=== PATIENT | female | born 1980 | race Caucasian/White ===

== ENCOUNTER 2024-01-16 09:40 | Outpatient (AMB) | payer OTHER, SELFPAY ==
--- NOTE | 2024-01-16 09:45 | A.OFFPC_ITS ---
<Statement entered by Kaylee Carter RN - 01/16/24 11:15> When I entered the exam room to give the patient her TDaP shot the patient informed me she had called and spoke with her mother who informed the patient that she had had her tetanus shot in 2016. Patient decided against getting the shot today since she has had it within ten years. Vital Signs 01/16/24 09:56 Height 5 ft 4 in Weight 170 lb 4 oz BMI 29.2 BP 102/66 Blood Pressure Location Rt brachial Position Sitting Respiration 13 Pulse 80 Pulse Source Pulse Oximeter Pulse Oximetry (%) 98 Oxygen Delivery Method Room Air Intake Visit Reasons: pediatric genetic counselor referral for roberto Intake Note: new patient to establish care and also need referral for mammo. Allergies morphine [MORPHINE] Allergy (Intermediate, Verified 01/16/24 10:14) NAUSEA Penicillins [PENICILLINS] Allergy (Intermediate, Verified 01/16/24 10:14) HIVES Medication List - Last Reconciled 01/16/24 by BREE Rondon- No Known Home Meds Tobacco use date assessed: 01/16/24 Dental Screening Dental Screen Date: 01/16/24 Did you have a dental visit in the last 12 months?: No Did you have a dental problem in the last 6 months where you did not have access to dental care?: No Was dental information given to patient?: Patient has dentist HPI HPI Comments History of Present Illness Details 43 y/o F with TOMMIE, tobacco dependence cu rrent smoke, benzo dependence and etoh dependence in remission Hospitalized: [place] 1 year for benzo/etoh dependence Social works with insurance Surgical hx: [id number] 2016 Dr Rodriguez @ [place] Family hx: Maternal aunt breast ca unsure of details - ; 2 sisters w/ no cancer history (1 sister is half); Mom no cancer history Health Maintenance: Mammo has never had one; Maternal Aunt of breast ca 2 years ago Pap September 2022 WNL Tdap 01/16/24, Declined Flu Specialists: Podiatry [facility], no records available and for CPE. Relocated from [place] last October Had Xray R foot - bone spur on heel Xray; was wearing a boot; has pain that is so bad at times she cannot walk. Would like referral to podiatry. Has reproductive issues; was on clomid; unable to have a baby; told eggs cannot mature enough to be fertilized. Was having heavy crampy periods in the past; Last pap done September 2022 told this was WNL, No current desire to concieve. interested in referral to [facility] Was addicted to benzo (xanax) and had etoh dep/abuse, hospitalized in [place] for 1 year. Had electrode therapy. TOMMIE well controlled w/o meds. Used Vistaril PRN in the past with + effect. Not currently in counseling. Open to referral Eyes - wears glasses, needs referral, unsure of last eye exam Plan Screening labs today: Labs from today show a elevated MCV and MCH otherwise normal CBC, Elevated iron 214, normal TIBC, elevated% iron saturation, normal unsaturated iron binding, normal electrolytes, normal b12 & folate, normal renal function, hemoglobin A1c 4.9%, normal LFTs, normal lipid profile, normal TSH Will need to recheck labs and add on some addl labs to eveal abnormal CBC and Iron profile. RTO in 4 months for this, office to call and schedule. Mammo ordered Podiatry referral for R heel spur Referral to [facility] for routine [facility] Tdap today Declined flu Refer to [facility] for counseling Smoking cessation edu SBE edu RTO 1 year CPE sooner PRN This note is constructed using voice recognition software. While every effort has been made to ensure accuracy in milk condenser, still errors may have been included Sometimes, these errors may affect the content or meaning of the given sentence . An additional 20 was spent addressing the problem(s) noted at todays visit. This includes time spent before the visit reviewing the chart, time spent during the visit, and time spent after the visit on documentation [facility] Medical History (Updated 01/16/24 @ 15:23 by Lakesha Jack, [facility]) Anxiety Surgical History (Updated 01/16/24 @ 09:54 by Greg Amaral MA) Previous back surgery Family History (Updated 01/16/24 @ 09:53 by Greg Amaral MA) Father Diabetes Social History (Updated 01/16/24 @ 09:56 by Greg Amaral MA) Household Members: None Housing: Apartment Are you a primary residential caregiver to a significant other at home: No Do you presently have visiting nurse or other home services: No Alcohol intake: current Alcohol intake frequency: a few times a month Patient Tobacco Use Status: Former Tobacco user Tobacco use type: Cigarette Cigarettes Per Day: 4 Years Smoked: 15 e-Cigarette/Vaping Use: Never Used service: No Current occupational status: employed 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 1. Little interest or pleasure in doing things: not at all 2. Feeling down, depressed, or hopeless: not at all 3. Trouble falling or staying asleep, or sleeping too much: not at all 4. Feeling tired or having little energy: not at all 5. Poor appetite or overeating: not at all 6. Feeling bad about yourself - or that you are a failure or have let yourself or your family down: not at all 7. Trouble concentrating on things, such as reading the newspaper or watching television: not at all 8. Moving or speaking so slowly that other people could have noticed. Or the opposite - being so fidgety or restless that you have been moving around a lot more than usual: not at all 9. Thoughts that you would be better off or of hurting yourself in some way: not at all Total score: 0 Depression Screening Interpretation: Negative Depression Screening Done: Yes 40190 - PHQ-9 Billing: Yes Source: Developed by Drs. Cy Walter, Eleni Estrada, Ronnie Francis and colleagues, with an educational tracy from [employer]. Thrive Questionnaire Date Thrive assessed: 01/16/24 I am a: Patient What is your living situation today?: I have a steady place to live Within the past 12 months, did the food you bought not last and you didn't have the money to get more?: Never true Within the past 12 months, did you worry whether your food would run out before you got money to buy more?: Never true Do you have trouble paying for medicines?: No Do you have trouble getting transportation to medical appointments?: No Do you have trouble paying your heating and electricity bill?: No Do you have trouble taking care of your child, family member or friend?: No Do you have trouble with day-to-day activities such as bathing, preparing meals, shopping, managing finances, etc.?: No Are you currently unemployed and looking for a job?: No Are you interested in more education?: No Please select the resources that you would like help with: None Currently or been in a relationship where the following occur: No concerns reported THRIVE Score: 0 AUDIT C Alcohol Use Questionnaire (AUDIT-C) 1. How often do you have a drink containing alcohol?: 2-4 times a month 2. How many drinks containing alcohol do you have on a typical day when you are drinking?: 1 or 2 3. How often do you have six or more drinks on one occasion?: Never Total Score: 2 Score Reviewed/Action Taken: Yes TOMMIE-7 AMB Questionnaire TOMMIE-7 Date TOMMIE - 7 assessed: 01/16/24 Feeling nervous, anxious, or on edge: 0 = Not at all Not being able to stop or control worryin = Not at all Worrying too much about different things: 0 = Not at all Trouble relaxin = Not at all Being so restless that it is hard to sit still: 0 = Not at all Becoming easily annoyed or irritable: 0 = Not at all Feeling afraid as if something awful might happen: 0 = Not at all Total TOMMIE-7 score (0-4 normal; 5-9 mild; 10-14 moderate; 15-21 severe): 0 Source: Developed by Drs. Cy Walter, Eleni Estrada, Ronnie Francis and colleagues, with an educational tracy from [employer]. TOMMIE-7 Assessment Billing TOMMIE-7 Assessment Tool: TOMMIE-7 Assessment 77843 Review of Systems Const Details: Constitutional: Denies fever. Skin: Denies rash. Eye: Denies eye pain. ENMT: Denies sore throat and nasal congestion. Respiratory: Denies shortness of breath and cough. Gastrointestinal: Denies nausea, vomiting or abdominal pain. Cardiovascular: Denies chest pain and syncope. Genitourinary: Denies dysuria. Musculoskeletal: Denies back pain and extremity pain. Neurologic: Denies headaches, confusion, and weakness. Psychiatric: Denies suicidal thoughts and substance abuse. Allergy/ Immunologic: Denies impaired immunity. Physical exam (Primary Care) Vital Signs: Last Vital Signs Pulse 80 01/16/24 09:56 Resp 13 01/16/24 09:56 BP 102/66 01/16/24 09:56 Pulse Ox 98 01/16/24 09:56 Oxygen Delivery Method Room Air 01/16/24 09:56 BMI result Body Mass Index 29.2 BMI Assessment/Plan discussion: High BMI High, discussed plan: lifestyle and alcohol moderation Tobacco/Smoking Status: Tobacco use Status Tobacco use date assessed 01/16/24 01/16/24 09:56 Patient Tobacco Use Status Former Tobacco user 01/16/24 09:56 Tobacco use type Cigarette 01/16/24 09:56 e-Cigarette/Vaping Use Never Used 01/16/24 09:56 Are you ready to quit: Yes Tobacco cessation counseling provided: Yes Items discussed: Nicotine replacement, QuitWorks and Other Relapse Prevention: discussed the importance of a supportive environment, discussed extending NRT, discussed negative mood or depression after quitting, weight gain after smoking is common and discussed dietary, exercise and/or lifestyle changes Number of minutes spent counselin CPT code: 57698 - 4-10 Minutes PHQ-9: PHQ-9 Score PHQ-9: Total score 0 01/16/24 10:26 Depression Screening Interpretation: Negative Thrive Assessment: Date of Thrive Assessment Date Thrive assessed 01/16/24 01/16/24 09:56 Currently or been in a relationship where the following occur: No concerns reported Const Other: General: Well developed, well nourished, in no acute distress. Appears stated age. Head: Normocephalic, atraumatic. Eyes: Pupils are equal, round and reactive to light and accommodation. Conjunctivae are clear. Vision grossly normal. Ears: TMs clear AU, EACS WNL Nose: Patent, without discharge. Mouth: There are no ulcers or lesions noted. No inflammation, no post nasal drip, no plaques nor exudates. Neck: Supple, no adenopathy or thyromegaly. Lungs: Clear to auscultation bilaterally. No rales, rhonchi or wheeze noted. Good air flow in all crabtree. Heart: Regular rate and rhythm. No murmurs, click, rubs or gallops are noted. Abdomen: Bowel sounds present in all quadrants. The abdomen is soft, nontender, with no masses or organomegaly noted. No hernias are noted. Musculoskeletal: Joints are nontender, without swelling, redness, or effusions. Range of motion is observed to be normal. Pulses: Peripheral pulses are equal and palpable bilaterally. Extremities: No clubbing, cyanosis nor edema is noted. Neurologic: Gait and station normal. Cranial Nerves 2-12 intact. Motor strength grossly symmetrical and intact. No sensory loss. Balance normal. Skin: No rashes, ulcers, or lesions noted. Turgor is good. Skin color is good. Hair and nails are without abnormalities. Psych: Normal eye contact, affect and mood appropriate, and normal interactions. Patient is alert and appropriate to context. Coding Level of Care Code New Pt Level 2 (39745) New Pt Prev Care 40-64y(14303) Diagnoses Encounter for general adult medical examination without abnormal findings Z00.00 Calcaneal spur of right foot M77.31 Laterality: right Cervical cancer screening Z12.4 TOMMIE (generalized anxiety disorder) F41.1 Blurred vision, bilateral H53.8 Laboratory exam ordered as part of routine general medical examination Z00.00 Tobacco dependence F17.200 Benzodiazepine dependence in remission F13.21 Alcohol dependence in remission F10.21 Substance use status: in remission BMI 29.0-29.9,adult Z68.29 High total iron binding capacity R79.89 Macrocytosis without anemia D75.89 Additional Codes TOMMIE-7 Assessment Billing - TOMMIE-7 Assessment Tool: TOMMIE-7 Assessment 96344 ([id number]) Vital Signs *Quality* - CPT code: 51161 - 4-10 Minutes ([id number]) Assessment & Plan Assessment & Plan (1) Encounter for general adult medical examination without abnormal findings: Code(s): Z00.00 - Encounter for general adult medical examination without abnormal findings Plan: . (2) Heel spur: Comment: right foot Code(s): M77.30 - Calcaneal spur, unspecified foot Category: Medical Qualifiers: Laterality: right Qualified Code(s): M77.31 - Calcaneal spur, right foot Plan: . (3) Cervical cancer screening: Code(s): Z12.4 - Encounter for screening for malignant neoplasm of cervix Category: Medical Plan: . (4) TOMMIE (generalized anxiety disorder): Code(s): F41.1 - Generalized anxiety disorder Category: Medical Plan: . (5) Blurred vision, bilateral: Code(s): H53.8 - Other visual disturbances Category: Medical Plan: . (6) Laboratory exam ordered as part of routine general medical examination: Code(s): Z00.00 - Encounter for general adult medical examination without abnormal findings Category: Medical Plan: . (7) Tobacco dependence: Code(s): F17.200 - Nicotine dependence, unspecified, uncomplicated Category: Medical Plan: . (8) Benzodiazepine dependence in remission: Code(s): F13.21 - Sedative, hypnotic or anxiolytic dependence, in remission Category: Medical Plan: . (9) EtOH dependence: Code(s): F10.20 - Alcohol dependence, uncomplicated Category: Medical Qualifiers: Substance use status: in remission Qualified Code(s): F10.21 - Alcohol dependence, in remission Plan: . (10) BMI 29.0-29.9,adult: Code(s): Z68.29 - Body mass index [BMI] 29.0-29.9, adult Category: Medical (11) High total iron binding capacity: Code(s): R79.89 - Other specified abnormal findings of blood chemistry Category: Medical (12) Macrocytosis without anemia: Code(s): D75.89 - Other specified diseases of blood and blood-forming organs Category: Medical Plan . Orders: Orders Comprehensive Met. Panel Today Z00.00 - Encounter for general adult medical examination without abnormal findings TSH reflex Free T4 Today Z00.00 - Encounter for general adult medical examination without abnormal findings Complete Blood Count Man Dif 04/27/24 D75.89 - Other specified diseases of blood and blood-forming organs, R79.89 - Other specified abnormal findings of blood chemistry IRON PROFILE 04/27/24 D75.89 - Other specified diseases of blood and blood- forming organs, R79.89 - Other specified abnormal findings of blood chemistry Hepatitis A,B,C Profile 04/27/24 D75.89 - Other specified diseases of blood and blood-forming organs, R79.89 - Other specified abnormal findings of blood chemistry DNA Analysis Hemochromatosis 04/27/24 D75.89 - Other specified diseases of blood and blood-forming organs, R79.89 - Other specified abnormal findings of blood chemistry MM tomosynthesis screening BI Today Z12.31 - Encounter for screening mammogram for malignant neoplasm of breast Complete Blood Count no Diff Today Z00.00 - Encounter for general adult medical examination without abnormal findings Hemoglobin A1c Today Z00.00 - Encounter for general adult medical examination without abnormal findings IRON PROFILE Today Z00.00 - Encounter for general adult medical examination without abnormal findings Lipid Panel Today Z00.00 - Encounter for general adult medical examination without abnormal findings Microalbumin, Random (w Creat) Today Z00.00 - Encounter for general adult medical examination without abnormal findings Vitamin B12 and Folate Today Z00.00 - Encounter for general adult medical examination without abnormal findings Ferritin 04/27/24 D75.89 - Other specified diseases of blood and blood-forming organs, R79.89 - Other specified abnormal findings of blood chemistry Referrals Podiatry Referral M77.30 - Calcaneal spur, unspecified foot REAL ESTATE LEASING MANAGER Referral Z12.4 - Encounter for screening for malignant neoplasm of cervix Nurse Navigator Referral F41.1 - Generalized anxiety disorder Ophthalmology Referral H53.8 - Other visual disturbances Patient Instructions: Smoking Cessation How to Quit There are a lot of ways to quit smoking and many resources to help you. Family members, friends, and co-workers may be supportive or encouraging, but to be successful the desire and commitment to quit must be your own. Most people who have been able to successfully quit smoking made at least one unsuccessful attempt in the past. Try not to view past attempts to quit as failures, but rather as learning experiences. Stopping smoking or using smokeless tobacco is difficult, but anyone can do it. Know the symptoms to expect when you stop. Common symptoms include: ? An intense craving for nicotine ? Anxiety, tension, restlessness, frustration, or impatience ? Difficulty concentrating ? Drowsiness or trouble sleeping, as well as bad dreams and nightmares ? Drowsiness and trouble sleeping ? Headaches ? Increased appetite and weight gain ? Irritability or depression How severe your symptoms are depends on how long you smoked and how many cigarettes you smoked each day. Feel ready to quit? ? First and foremost, set a quit date and quit completely on that day. Before your quit date, you may begin reducing your cigarette use. But remember, there is no safe level of cigarette smoking. ? List the reasons why you want to quit. Include both short- and long-term benefits. ? Identify the times you are most likely to smoke. For example, do you tend to smoke when feeling stressed or down? When out at night with friends? While drinking coffee or alcohol? When bored? While driving? Right after a meal or sex? During a work break? While watching TV or playing cards? When you are with other smokers? ? Let all of your friends, family, and co-workers know of your plan to stop smoking and your quit date. Just being aware that they know what you're going through can be helpful, especially when you are grumpy. ? Get rid of all your cigarettes just before the quit date, and clean out anything that smells like smoke, such as clothes and furniture. Make a plan about what you will do instead of smoking at those times when you are most likely to smoke. ? Be as specific as possible. For example, drink tea instead of coffee -- tea may not trigger the desire for a cigarette. Or, take a walk when you feel stressed. ? Remove ashtrays and cigarettes from the car. Place pretzels or hard candies there instead. Pretend-smoke with a straw. ? Find activities that focus your hands and mind but are not taxing or fattening. Computer games, solitaire, knitting, sewing, and crossword puzzles may help. ? If you normally smoke after eating, find other ways to end a meal. Play a tape or CD, eat a piece of fruit, get up and make a phone call, or take a walk (a good distraction that also angel calories). Make other changes in your lifestyle. ? Change your daily schedule and habits. Eat at different times or eat several small meals instead of three large ones. Sit in a different chair or even a different room. ? Satisfy your oral habits by eating celery or other low-calorie snack, chewing sugarless gum, or sucking on a cinnamon stick. ? Go to public places and restaurants where smoking is prohibited or restricted. ? Eat regular meals and don't eat too much candy or sweet things. ? Get more exercise. Take walks or ride a bike. Exercise helps relieve the urge to smoke. Set short-term quitting goals and reward yourself when you meet them. ? Every day, put the money you normally spend on cigarettes in a jar. Then buy something pleasurable after a period of time. ? Try not to think about all the days ahead you will need to avoid smoking. Take it one day at a time. ? Even one puff or one cigarette will make your desire for more cigarettes even stronger. However, it is normal to make mistakes. So even if you have one cigarette, you don't need to take the next one. Other tips to help you quit smoking and stick to it: ? Enroll in a smoking cessation program (hospitals, health departments, community centers, and work sites often offer programs). Learn about self-hypnosis or other techniques. ? Ask your health care provider about prescription medications that are safe and appropriate for you. ? Find out about nicotine patches, gum, and sprays. The [employer]'s web site -- www.cancer.org -- is an excellent resource for smokers who are trying to quit, and the [employer] [place] [employer] can help some smokers kick the habit. Above all, don't get discouraged if you aren't able to quit smoking the first time. Nicotine addiction is a hard habit to break. Try something different next time. Develop new strategies, and try again. Many people take several attempts to finally kick the habit. Health screenings for women You should visit your health care provider from time to time, even if you are healthy. The purpose of these visits is to: Screen for medical issues Assess your risk for future medical problems Encourage a healthy lifestyle Update vaccinations and other preventive care services Help you get to know your provider in case of an illness Information Even if you feel fine, you should still see your provider for regular checkups. These visits can help you avoid problems in the future. For example, the only way to find out if you have high blood pressure is to have it checked regularly. High blood sugar and high cholesterol levels also may not have any symptoms in the early stages. A simple blood test can check for these conditions. There are specific times when you should see your provider or receive specific health screenings. The [place] Preventive Services Task Force publishes a list of recommended screenings. Below are screening guidelines for women ages 18 to 39. BLOOD PRESSURE SCREENING Your blood pressure should be checked at least once every 3 to 5 years if: Your blood pressure is in the normal range (top number less than 120 mm Hg and bottom number less than 80 mm Hg) You don't have risk factors for high blood pressure Ask your provider if you need your blood pressure checked more often if: The top number is 120 to 129 mm Hg or the bottom number is 70 to 79 mm Hg You have diabetes, heart disease, kidney problems, are overweight, or have certain other health conditions You have a first-degree relative with high blood pressure You are Black You had high blood pressure during a If the top number is 130 mm Hg or greater or the bottom number is 80 mm Hg or greater, this is considered stage 1 hypertension. Schedule an appointment with your provider to learn how you can reduce your blood pressure. Watch for blood pressure screenings in your area. Ask your provider if you can stop in to have your blood pressure checked. BREAST CANCER SCREENING Experts do not agree about the benefits of breast self-exams in finding breast cancer or saving lives. Talk to your provider about what is best for you. A screening mammogram is not recommended for most women under age 40. Your provider may discuss and recommend mammograms, MRI scans, or ultrasounds if you have an increased risk for breast cancer, such as: A mother or sister who had breast cancer at a young age (most often starting screening earlier than the age the close relative was diagnosed) You carry a high-risk genetic marker CERVICAL CANCER SCREENING Cervical cancer screening should start at age 21 years unless your provider advises otherwise. After the first test: Women ages 21 through 29 should have a Pap test every 3 years. Exoprts do not agree on whether HPV testing is recommended for this age group. Women ages 30 through 65 should be screened with either a Pap test every 3 years or the HPV test every 5 years or both tests every 5 years (called cotesting ). Women who have been treated for precancer (cervical dysplasia) should continue to have Pap tests for 20 years after treatment or until age 65, whichever is longer. If you have had your uterus and cervix removed (total hysterectomy), and you have not been diagnosed with cervical cancer or precancer (high grade cervical neoplasia), you do not need cervical cancer screening. CHOLESTEROL SCREENING Cholesterol screening should begin at: Age 45 for women with no known risk factors for coronary heart disease Age 20 for women with known risk factors for coronary heart disease Repeat cholesterol screening should take place: Every 5 years for women with normal cholesterol levels More often if changes occur in lifestyle (including weight gain and diet) More often if you have diabetes, heart disease, kidney problems, or certain other conditions DIABETES SCREENING You should be screened for diabetes starting at age 35 and then repeated every 3 years if you have no risk factors for diabetes. Screening may need to start earlier and be repeated more often if you have other risk factors for diabetes, such as: You have a first degree relative with diabetes. You are overweight or have obesity. You have high blood pressure, prediabetes, or a history of heart disease. Screening for diabetes should be done if you are planning to become and you are overweight and have other risk factors such as high blood pressure. DENTAL EXAM Go to the dentist once or twice every year for an exam and cleaning. Your dentist will evaluate if you need more frequent visits. EYE EXAM Have an eye exam every 5 to 10 years before age 40. If you have vision problems, have an eye exam every 2 years or more often if recommended by your provider. You should have an eye exam that includes an examination of your retina (back of your eye) at least every year if you have diabetes. IMMUNIZATIONS Commonly needed vaccines include: Flu shot: get one every year. COVID-19 vaccine: ask your provider what is best for you. Tetanus-diphtheria and acellular pertussis (Tdap) vaccine: have one at or after age 19 as one of your tetanus-diphtheria vaccines if you did not receive it as an adolescent. Tetanus-diphtheria: have a booster (or Tdap) every 10 years. Varicella vaccine: receive 2 doses if you never had chickenpox or the varicella vaccine. Hepatitis B vaccine: receive 2, 3, or 4 doses, depending on your exact circumstances. Measles, mumps, and rubella (MMR) vaccine: receive 1 to 2 doses if you are not already immune to MMR. Your provider can tell you if you are immune. Ask your provider about the human papillomavirus (HPV) vaccine if: You have not received the HPV vaccine in the past You have not completed the full vaccine series (you should catch up on this shot) Ask your provider if you should receive other immunizations if you have certain health problems that increase your risk for some diseases such as pneumonia. INFECTIOUS DISEASE SCREENING Women who are sexually active should be screened for chlamydia and gonorrhea up until age 25. Women 25 years and older should be screened for chlamydia and gonorrhea if at high risk. Screening for hepatitis C: All adults ages 18 to 79 should get a one-time test for hepatitis C. people should be screened at every . Screening for human immunodeficiency virus (HIV): All people ages 15 to 65 should get a one-time test for HIV. Depending on your lifestyle and medical history, you may also need to be screened for infections such as syphilis and HIV, as well as other infections. PHYSICAL EXAM All adults should visit their provider from time to time, even if they are healthy. The purpose of these visits is to: Screen for disease Assess your risk of future medical problems Encourage a healthy lifestyle Update your vaccinations and other preventive care services Maintain a relationship with a provider in case of an illness Your height, weight, and BMI should be checked at every exam. During your exam, your provider may ask you about: Depression and anxiety Diet and exercise Alcohol and tobacco use Safety issues, such as using seat belts, smoke detectors, and intimate partner violence Your medicines and risk for interactions SKIN SELF-EXAM Your provider may check your skin for signs of skin cancer, especially if you're at high risk, such as if you: Have had skin cancer before Have close relatives with skin cancer Have a weakened immune system OTHER SCREENING Talk with your provider about colon cancer screening if you have a strong family history of colon cancer or polyps, or if you have had inflammatory bowel disease or polyps yourself. Routine bone density screening of women under 40 is not recommended. Walk-In Care (Urgent Care): We Make it Easy Walk-in for urgent medical issues such as: ? Seasonal Allergies ? Insect Bites ? Cough ? Diarrhea ? Acute Asthma Attacks ? Back, Knee or Joint Pain ? Ear Infection ? Fever without a Rash ? Headaches ? Nausea ? [place] [facility], Rash or Skin Irritation ? Sore Throat ? Sports Physicals ? Vomiting Most insurances are accepted. Patients do not need to be part of the [facility] to seek care at the walk-in clinic. Locations [facility] , [place] [address] ? [phone] [facility] [place] provides services to ages 18 and over. Open Sunday-Sunday: 8 a.m. to 5 p.m. and Sunday: 9 a.m. to 3 p.m.* *Hours may vary due to staffing availability. To confirm Walk-In Care hours in [place], please call [phone]. [address] [place] [id number] ? [phone] [facility] [place] provides services to ages 12 and over. Open Sunday-Sunday: 8 a.m. to 5 p.m. Hours may vary due to staffing availability. To confirm Walk-In Care hours in [place], please call [phone]. LABORATORY SERVICES: [facility] Lab ? Primary Location [address] Sunday through Sunday 6:00 AM ? 5:00 PM Sunday 7:00 AM ? 11:00 AM* [phone] The [facility] Lab is centrally located near the front entrance of the [facility] for easy outpatient access. Convenient parking is provided for outpatients. *Hours may vary due to staffing availability. To confirm Laboratory hours for any location, please call [phone]. Offsite Location For your convenience, we offer offsite laboratory draw stations at the following locations: [address] [place] [address] ? [facility] [address], [address] Sunday through Sunday 7:30 AM ? 1:00 PM* [phone] *Hours may vary due to staffing availability. To confirm Laboratory hours for any location, please call [phone]. [place] ? [address] Sunday through Sunday 6:00 AM ? 3:30 PM* Sunday 6:30 AM ? 3 PM* [phone] *Hours may vary due to staffing availability. To confirm Laboratory hours for any location, please call [phone] [place] [address] Sunday through Sunday 7:30 AM ? 4:00 PM* [phone] *Hours may vary due to staffing availability. To confirm Laboratory hours for any location, please call [phone] [place] [address] Sunday through 9:00 AM ? 4:00 PM* *Hours may vary due to staffing availability. To confirm Laboratory hours for any location, please call [phone]. Appointments are not necessary. Walk-ins are welcome. Like all the departments throughout the [facility], our Lab undergoes frequent reviews to ensure the quality and accuracy of test results, and our staff takes special pride in its status as a nationally accredited facility. Patient Portal: ONE PATIENT. ONE RECORD. BETTER CARE. [facility] has a fully integrated, cutting- edge mobile electronic health information system that has revolutionized the way we care for our patients and manage our organization. This system improves communication and coordination enabling us to provide safe, higher-quality care, and an overall positive experience for staff and patients. Our first priority, as always, is to deliver the highest quality care possible. The system is running in the background supporting that priority. This portal is for all [facility] services and practices. If you are experiencing any technical difficulties with enrolling or logging into the Patient Portal please complete the [facility] Patient Portal Technical Support Form. [facility] now offers a new secure on-line interactive tool for patients to review their health information ? Patient Portal. This interactive web portal will enable patients and their families to take an active role in their care by providing easy, secure access to their health information via the internet. The Patient Portal provides patients with instant access to their health inform ation, including laboratory results, medications, allergies, demographic information, visit history, and more. In addition to managing their own care, parents and health care proxies with authorized consent will appreciate the ability to access the records of those individuals for whom they provide care. Please note: if you wish to gain access (Proxy) to another patient?s portal, you will be required to come to the Medical Records Department in person at [facility]. Both the patient giving proxy access and the proxy will need to provide photo identification and complete the appropriate authorization. The Patient Portal also allows track their appointments online. The [facility] Patient Portal also saves patients time by allowing them to submit updates to their demographic and contact information prior to their visits. Portal email notifications will also alert patients to any new activity on their portal, such as test results and new appointments. In order to initially enroll in the [facility] Patient Portal, you will need to enter some required information including the following: ? your [facility] Medical Record number ? your personal home email address ? name ? date of Please note: In order to enroll in the [facility] Patient Portal, we need to have your email address on file in your electronic medical record. The email address needs to be specific for one person (yourself) in order for your Portal enrollment to be successful. You can update your email address in person with our Registration staff when you are registering for a hospital visit. Otherwise, you will need to come to the Health Information Management (Medical Records) Department at [facility]. We are open from Sunday ? Sunday from 7:30 a.m. ? 4:30 p.m. You will be required to present a photo id. Once you have successfully enrolled in the Patient Portal, you will receive a one-time user id and password for the Portal, sent to your email address. This will allow you to log into the Patient Portal within 99 hrs and reset your own logon id and password, and define personal security questions. Once your permanent login and password have been set, you can log into the [facility] Patient Portal at any time via the blue button above or from the Portal Logon button on any page of the [facility] website. [facility] and [facility] encourage all of our patients to enroll in Patient Portal as it presents a valuable opportunity for patients and their families to actively participate in their care and stay healthy Welcome to [facility]. We look forward to working with you.
[2024-01-16 09:56] VITALS: BP 102/66; PULSE 80; RESP 13; O2SAT 98; BMI 29.2
== END 2024-01-16 11:07 | disposition home or self-care (01) ==
PROVIDERS: PCP Nurse Practitioner Family; Visit Provider Nurse Practitioner Family
DX: Z00.00 Encounter for general adult medical examination without abnormal findings (principal); M77.31 Calcaneal spur, right foot; F17.210 Nicotine dependence, cigarettes, uncomplicated; F13.21 Sedative, hypnotic or anxiolytic dependence, in remission; F10.21 Alcohol dependence, in remission; F41.1 Generalized anxiety disorder; H53.8 Other visual disturbances; Z68.29 Body mass index [BMI] 29.0-29.9, adult; R79.89 Other specified abnormal findings of blood chemistry; D75.89 Other specified diseases of blood and blood-forming organs; E66.811 Obesity, class 1

== ENCOUNTER → 2024-01-16 09:40 | Outpatient (BNVA) | payer OTHER, SELFPAY | PROVIDERS: PCP Internal Medicine; Visit Provider Nurse Practitioner Family | DX: Z00.00 Encounter for general adult medical examination without abnormal findings (principal); M77.31 Calcaneal spur, right foot; F41.1 Generalized anxiety disorder; H53.8 Other visual disturbances; R79.89 Other specified abnormal findings of blood chemistry; D75.89 Other specified diseases of blood and blood-forming organs; F17.200 Nicotine dependence, unspecified, uncomplicated; F13.21 Sedative, hypnotic or anxiolytic dependence, in remission; F10.21 Alcohol dependence, in remission | CPT/HCPCS: 96127 ==

== ENCOUNTER 2024-01-16 11:12 | Outpatient (REF) | payer OTHER, SELFPAY ==
[2024-01-16 14:28] LABS: Hematocrit 42.5 % (37.0-47.0); Hemoglobin 14.5 g/dl (12.0-16.0); Mean Corpuscular HGB Conc 34.1 g/dl (31.0-35.0); Mean Corpuscular Hemoglobin 33.8 pg (27.0-33.0); Mean Corpuscular Volume 99.1 fL (80.0-98.0); Mean Platelet Volume 12.2 fL (9.4-12.3); Platelet Count 231 X10*3/uL (160-400); Red Blood Count 4.29 X10*6/uL (4.20-5.50); Red Cell Distribution Width 12.3 % (11.0-16.0); White Blood Count 7.2 X10*3/uL (4.8-10.8)
[2024-01-16 14:45] LABS: Alanine Aminotransferase 20 U/L (0-31); Albumin Level 4.1 g/dL (3.5-5.0); Alkaline Phosphatase 62 U/L (39-117); Anion Gap 9 (12-20); Aspartate Amino Transferase 15 U/L (5-31); Bilirubin Total 0.6 mg/dL (0.0-1.0); Blood Urea Nitrogen 15 mg/dL (9-16); Calcium 9.4 mg/dL (8.4-10.2); Carbon Dioxide 27 mmol/L (22-29); Chloride 110 mmol/L (96-108); Cholesterol 127 mg/dL (<200); Estimated Glomerular Filt Rate > 60; Glucose Random 89 mg/dL (60-115); HDL Cholesterol 46 mg/dL (>40); Iron 214 mcg/dL (30-160); LDL Cholesterol Calculated 60 mg/dL (<100); Percent Iron Saturation 81 % (15-50); Potassium 3.9 mmol/L (3.3-5.1); Sodium 142 mmol/L (135-145); Total Iron Binding Capacity 264 mcg/dL (228-428); Total Protein 6.7 g/dL (6.5-8.0); Triglycerides 107 mg/dL (<150); Unsaturated Iron Binding 50 ug/dL
[2024-01-16 14:51] LABS: Estimated Average Glucose 94 mg/dL; Hemoglobin A1C 111.2527 umol/L; Hemoglobin A1c % 4.9 % (<6.0); Total Hemoglobin (HGBA1C) 3725.2846 umol/L
[2024-01-16 15:00] LABS: TSH reflex Free T4 0.49 uIU/mL (0.32-4.0)
[2024-01-16 15:12] LABS: Folate 8.9 ng/mL (> or = 4.0); Vitamin B12 482 pg/mL (200-900)
[2024-01-16 15:30] LABS: Creatinine Urine 158.41 mg/dL; Microalbum/Creatinine Ratio Ur 3.7 ug/mg cr (<30)
== END 2024-01-16 11:13 | disposition home or self-care (01) ==
LOC: HO.WFDLDS 11:12
PROVIDERS: Visit Provider Nurse Practitioner Family
DX: Z00.00 Encounter for general adult medical examination without abnormal findings (principal); Z13.1 Encounter for screening for diabetes mellitus
CPT/HCPCS: 36415; 80053; 80061; 82043; 82570; 82607; 82746; 83036; 83540; 84443; 85027

== ENCOUNTER 2024-02-16 07:53 | Outpatient (REF) | payer OTHER, SELFPAY ==
--- NOTE | ~2024-02-16 | MM_ITS ---
EXAMINATION: MM SCREENING DIGITAL BREAST TOMOSYNTHESIS, BILATERAL CLINICAL INFORMATION: Screening. Asymptomatic. COMPARISON: Mammography: Baseline. TECHNIQUE: Digital breast mammography with tomosynthesis is performed in both the craniocaudal and mediolateral oblique views along with computer-aided detection (CAD). FINDINGS: The breasts are heterogeneously dense, which may obscure small masses (ACR BI-RADS breast composition Category c). There are no significant masses, abnormal calcifications, or other abnormalities. MM/MM tomosynthesis screening BI IMPRESSION: No mammographic evidence of malignancy. ASSESSMENT: BI-RADS BI-RADS 1 - Negative RECOMMENDATION: Routine annual mammography screening. 1 year F/U This examination should not preclude the clinical evaluation of a suspicious palpable abnormality. This patient's information was entered into a reminder system with a target due date for their next mammogram. Electronically signed by: Beatris Viramontes DO 02/26/2024 10:58 AM [facility]
== END 2024-02-16 07:54 | disposition home or self-care (01) ==
LOC: HO.MAMMO 07:53
PROVIDERS: PCP Nurse Practitioner Family; Visit Provider Nurse Practitioner Family
DX: Z12.31 Encounter for screening mammogram for malignant neoplasm of breast (principal)
CPT/HCPCS: 77063; 77067

== ENCOUNTER → 2024-02-16 08:15 | Outpatient (BNV) | payer OTHER, SELFPAY | PROVIDERS: PCP Nurse Practitioner Family; Visit Provider Internal Medicine | DX: Z12.31 Encounter for screening mammogram for malignant neoplasm of breast (principal) | CPT/HCPCS: 77063; 77067 ==

== ENCOUNTER 2024-07-31 08:54 | Outpatient (REF) | payer OTHER, SELFPAY ==
--- OUTSIDE RECORDS SUMMARY | 2024-07-31 11:50 | XMS_ITS | Clinical Summary ---
Author Organization [facility] ity Address [address] [place] [address] Care Team Providers Care Unmanned Aircraft Systems Roboticist Name Role Phone Unavailable Primary Care Provider [...]
[2024-07-31 15:25] LABS: Bacterial Vaginosis PCR NEGATIVE (Negative); Candida Group PCR NOT DETECTED (Not Detect); Candida glab krusei PCR NOT DETECTED (Not Detect); Trichomonas vaginalis PCR NOT DETECTED (Not Detect)
[2024-07-31 15:54] LABS: CT PCR NOT DETECTED (Not Detect.); NG PCR NOT DETECTED (Not Detect.)
[2024-08-05 14:13] LABS: HPV Genotype 16 Positive (Negative); HPV Genotype 18 Negative (Negative); HPV High Risk Negative (Negative)
== END 2024-07-31 08:55 | disposition home or self-care (01) ==
LOC: HO.LNP 08:54
PROVIDERS: PCP Nurse Practitioner Family; Visit Provider Advanced Practice Midwife
DX: Z01.419 Encounter for gynecological examination (general) (routine) without abnormal findings (principal); Z80.3 Family history of malignant neoplasm of breast; Z68.29 Body mass index [BMI] 29.0-29.9, adult
CPT/HCPCS: 81515; 87491; 87591; 87626; 88175

== ENCOUNTER 2024-07-31 08:54 | Outpatient (AMB) | payer OTHER, SELFPAY ==
--- NOTE | 2024-07-31 09:14 | MHC.OFFVIS ---
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 She [place] to live in the area and received all her care up in the [place] system with Dr. Garcia. She had some years of infertility and infertility treatments that were not successful she also has2 therapeutic abortions in the past. So she has not considered that she could easily get because of this. Nevertheless she does get regular periods. She is sexually active with her ex- she has no concerns whatsoever about STIs as he has had health issues and she is 100% certain. She has never had an abnormal Pap smear she did say however she had a lesion removed from her mons pubis a couple of years ago that tested positive for HPV but not a precancerous kind. She has a family history of breast cancer it was her aunt she does not know for sure if she had any BRCA testing or anything. She will investigate that she had her mammogram done in April and she says she was told she had dense breasts. She used to be much more overweight and has embarked on a journey of very healthy eating and exercise she is very physically active and does 30 minutes on a treadmill at an incline in increments at the gym and she also eats extremely healthy with healthy lean clean proteins and vegetables and avoids sugar and artificial foods she has lost a lot of weight she does not weigh herself but rather pays attention to how she feels and this is been working very well for her. [facility] Medical History Anxiety Surgical History Previous back surgery Family History (Updated 07/31/24 @ 09:20 by Samantha Malik MA) Father Diabetes Maternal Aunt Breast cancer Social History Household Members: None Both parents involved: No Caregiver staying overnight: No Housing: Apartment Are you a primary college and career counselor to a significant other at home: No Do you presently have visiting nurse or other home services: No 75 years or older and lives alone: No Alcohol intake: current Alcohol intake frequency: a few times a month Patient Tobacco Use Status: Former Tobacco user Tobacco use type: Cigarette Cigarettes Per Day: 4 Years Smoked: 15 e-Cigarette/Vaping Use: Never Used service: No Current occupational status: employed 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 Cognitive needs: No Hearing needs: No Vision needs: Yes (wear glasses) Female Reproductive History Menstrual Age of Menarche: 17 Duration of menses: 3-5 days Date of last menstrual period: 07/03/24 control method: none Total pregnancies: 2 Ab induced: 2 History of abnormal pap smear: No Date of Mammogram: 02/16/24 (bi rad 1) Physical Exam Vital Signs: Last Vital Signs BP 116/68 07/31/24 09:25 BMI result Body Mass Index 29.9 Const General: healthy appearing, comfortable, no acute distress, well developed and alert Nutritional Appearance: average body habitus Orientation/consciousness: patient oriented x3 Limitations: no limitations HEENT Head: Yes normocephalic Neck Neck: Yes normal visual inspection Chest Chest palpation & inspection: normal inspection of the chest Breast/axilla inspection: normal inspection of the breasts and normal inspection of the axillae Breast/axilla palpation: normal palpation of the breasts and normal palpation of the axillae Resp Effort & Inspection: normal respiratory effort GI Other: External exam within normal limits evidence of previous stretch cano over previously healed folliculitis episodes. Vagina pink and moist cervix nulliparous pink slightly reddened after Pap normal appearing scant white mucus healthy-appearing long close thick mobile nontender uterus midposition mobile nontender adnexa nontender nonenlarged and good muscle tone. Inspection: Yes normal to inspection, No Abdominal wall edema and No distended Palpation (GI): Soft to palpation and nontender General: Yes bladder normal to palpation External Female Exam: normal external appearance and normal appearance of the urethra Speculum Exam - Vagina: normal appearance of the vagina, normal palpation and normal vaginal discharge Speculum Exam - Cervix: normal appearance of the cervix, normal palpation and nontender Bimanual exam- vagina & uterus: normal bimanual exam, normal palpation, uterine size normal, bladder normal to palpation, consistency normal, normal palpation, uterine mobility normal, uterine shape normal, No Cervical tenderness present, non-tender and no cervical motion tenderness Bimanual Exam- Adnexa, other: normal adnexae, no masses, normal and No adnexal tenderness Neuro General: patient oriented x3 Assessment & Plan Assessment & Plan (1) Cervical cancer screening: Code(s): Z12.4 - Encounter for screening for malignant neoplasm of cervix Category: Medical (2) BMI 29.0-29.9,adult: Code(s): Z68.29 - Body mass index [BMI] 29.0-29.9, adult Category: Medical (3) Family history of breast cancer: Code(s): Z80.3 - Family history of malignant neoplasm of breast Category: Medical (4) Well woman exam with routine gynecological exam: Code(s): Z01.419 - Encounter for gynecological examination (general) (routine) without abnormal findings Category: Medical (5) Encounter for screening examination for sexually transmitted disease: Code(s): Z11.3 - Encounter for screening for infections with a predominantly sexual mode of transmission Category: Medical Plan Discussed her very healthy eating patterns and exercise. She does 30 minutes at a 12 degree incline in intervals on a treadmill every day she eats a lot of protein from healthy sources such as hard boiled eggs very healthy cottage cheese and she snacks on very healthy things and very little to no processed food and sugar and snacks on things like green beans. She has lost a lot of weight she does not weigh herself she just goes by how she feels.. Her aunt had breast cancer discovered late. Her mother is fine no other close relatives. She herself had her mammogram in April she says it was fine she was told she has dense breasts. I recommend she just have a conversation about what the reading said and whether not anything else is recommended for her screening she does not know or think the BRCA testing was done for her aunt but she will ask her mother She is occasionally sexually active with her ex- but is 100% certain that he is low risk for any STDs. She has never had an abnormal Pap smear she did have a little growth on her mons pubis that was removed a couple of years ago in [place] and did test out to be HPV but not 1 of the strains that is precancerous. I did let her know that she still could be a candidate for the HPV vaccine and she will check into that. Discussed chelita menopausal symptoms in general and the range of experiences and timing and symptoms and ways to naturally handle them she is disinclined to ever think of hormones. She had trouble getting in fact was not able to despite a long journey with infertility treatments but I invited her to think about what she would do if she did get and consider condoms if it is not a good time for her just in case. -----Discussed in this visit the following: healthy balanced diet, regular and consistent exercise, getting recommended health screens, doing the best she can for her particular health concerns, kegel exercises, pap smear screening and followup recommendations, mammography screening and SBE, normal changes in cycles in her life stage--- . rtc 1 yr Orders: Orders Pap Smear Today Z01.419 - Encounter for gynecological examination (general) (routine) without abnormal findings CT NG by PCR Today Z01.419 - Encounter for gynecological examination (general) (routine) without abnormal findings Bacterial Vaginosis Panel Today Z01.419 - Encounter for gynecological examination (general) (routine) without abnormal findings HPV High risk Today Z01.419 - Encounter for gynecological examination (general) (routine) without abnormal findings Coding Level of Care Code New Pt Prev Care 40-64y([id number]) Diagnoses Cervical cancer screening Z12.4 BMI 29.0-29.9,adult Z68.29 Family history of breast cancer Z80.3 Well woman exam with routine gynecological exam Z01.419 Encounter for screening examination for sexually transmitted disease Z11.3
--- OUTSIDE RECORDS SUMMARY | 2024-07-31 09:19 | XMS_ITS | Patient Health Record ---
Author Organization [facility], [facility] Address [address] [place] [address] Care Team Providers Care Classification Control Clerk Name Role Phone Nicolette Lainez Unavailable [phone] ALLERGIES Allergen (clinical drug ingredient) Drug/Non Drug Allergy documented on EMR Reaction Allergy Type Onset Date Status morphine Morphine hives Drug Allergy Active Penicillin hives Drug Allergy Active REASON FOR REFERRAL No Information MEDICATIONS Medication SIG (Take, Route, Frequency, Duration) Notes Start Date End Date Status Ibuprofen 600 MG 1 tablet with food o r milk as needed Orally every 8 hrs for 30 days 11/09/2021 Active Naproxen Sodium ER 500 MG 1 tablet Orall y every 12 hours for 30 day(s) 10/26/2021 Active SOCIAL HISTORY Tobacco Use: Social History Observation Description Date Details (start date - stop date) Current Smoker NA - NA Sex Assigned At : Social History Observation Description Sex Assigned At Unknown Tobacco Use/Smoking Question Answer Notes Are you a current smoker? yes Alcohol Screen Question Answer Notes Did you have a drink containing alcohol in the p ast year? No Points 0 Interpretation Negative Sexual History Question Answer Notes Had sex in the past 12 months (vaginal, oral, or anal)? Yes with Men only Last menstrual period 09/30/2022 Tobacco use other than smoking: Question Answer Notes Are you an other tobacco user? No PROBLEMS Problem Type ICD Code Onset Dates Problem Status W/U Status Risk SNOMED Code Notes Problem Dysmenorrhea (N94.6) Active confirmed Dysmenorrhea (970278253) Problem BMI 32.0-32.9,adult (Z68.32) Active confirmed BMI 30+ - obesity (696626716) Problem BMI 31.0-31.9,adult (Z68.31) Active confirmed Body mass index 30.00 to 34.99 (167579135521828 ) Problem Painful menstruation (N94.6) Active confirmed Painful menstruation (448922172) PLAN OF TREATMENT Pending Test Test Name Order Date Bilateral Screening Mammogram w/ optiona l Tomosynthesis 11/01/2022 Insurance Providers Payer Name Payer Address Payer Phone Subscriber Number Group Number Insured Name Patient Relationship to Insured Coverage Start Date Coverage End Date Bc/Bs [place] [address] [place] [address] [id number] Debbie Muller Self - patient is the insured 2 MEDICAL (GENERAL) HISTORY Medical History History ICD Code H/O OVARIAN CYST H/O CYST ON CERVIX 1 CHLAMYDIA A TEEN H/O ANXIETY H/O DEPRESSION Surgical History Surgery Date(Month/Year) BACK SURGERY 2015 Hospitalization History Reason Date(Month/Year) UTI 2021
--- OUTSIDE RECORDS SUMMARY | 2024-07-31 09:19 | XMS_ITS | Clinical Summary ---
Author Organization [facility] ity Address [address] [place] [address] Care Team Providers Care Gear Design Engineer Name Role Phone Unavailable Primary Care Provider Unavailabl e Social History Tobacco Use Types Packs/Day Years Used Date Smoking Tobacco: Never Assessed Comments Unknown Sex and Gender Information Value Date Recorded Sex Assigned at Not on file Legal Sex Female 2:33 PM EDT Gender Identity Not on file Sexual Orientation Not on file Plan of Treatment Health Maintenance Due Date Last Done Comments Breast Cancer Screening 1982 DTaP,Tdap,and Td Vaccines (1 - Tdap) 2001 Hepatitis B Vaccines (1 of 3 - 19+ 3-dose series) 2001 Cervical Cancer Screening: P ap Smear 10/17/2003 COVID-19 Vaccine (2023-2 5 season) 2023 Influenza Vaccine (Season Ended) 2024 HIB Vaccines Aged Out No longer eligi ble based on patient's age to complete this topic HPV Vaccines Aged Out No longer eligi ble based on patient's age to complete this topic Hepatitis A Vaccines Aged Out No long er eligible based on patient's age to complete this topic IPV Vaccines Aged Out No longer eligi ble based on patient's age to complete this topic MMR Vaccines Aged Out No longer eligi ble based on patient's age to complete this topic Meningococcal ACWY Vaccine Aged Out N o longer eligible based on patient's age to complete this topic Meningococcal B Vaccine Aged Out No l onger eligible based on patient's age to complete this topic Pneumococcal Vaccine: Pediat rics (0 to 5 Years) and At-Risk Patients (6 to 64 Years) Aged Out No longer eligible b ased on patient's age to complete this topic RSV Immunization Patients Un vickey 20 months Aged Out No longer eligible b ased on patient's age to complete this topic Varicella Vaccines Aged Out No longer eligible based on patient's age to complete this topic
[2024-07-31 09:25] VITALS: BP 116/68; BMI 29.9
== END 2024-07-31 10:23 | disposition home or self-care (01) ==
LOC: HO.HWSM 08:54
PROVIDERS: PCP Nurse Practitioner Family; Visit Provider Advanced Practice Midwife
DX: Z01.419 Encounter for gynecological examination (general) (routine) without abnormal findings (principal); Z80.3 Family history of malignant neoplasm of breast; Z68.29 Body mass index [BMI] 29.0-29.9, adult
CPT/HCPCS: 99386; 99459

== ENCOUNTER 2024-09-03 10:00 | Outpatient (AMB) | payer OTHER, SELFPAY ==
--- NOTE | 2024-09-03 10:06 | MHC.OFFVIS ---
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 Negative for intraepithelial lesion or malignancy. HPV High Risk: Negative HPV Genotyping 16: Positive HPV Genotyping 18: Negative [facility] Medical History Anxiety Surgical History Previous back surgery Family History Father Diabetes Maternal Aunt Breast cancer Social History Household Members: None Both parents involved: No Caregiver staying overnight: No Housing: Apartment Are you a primary rn care transition to a significant other at home: No Do you presently have visiting nurse or other home services: No 75 years or older and lives alone: No Alcohol intake: current Alcohol intake frequency: a few times a month Patient Tobacco Use Status: Former Tobacco user Tobacco use type: Cigarette Cigarettes Per Day: 4 Years Smoked: 15 e-Cigarette/Vaping Use: Never Used service: No Current occupational status: employed 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 We thoroughly discussed the procedure itself, including its details, alternatives, and all associated risks. This included but not limited to the following complications such as bleeding, infection, and injury to the vagina, bladder, and vessels, as well as the potential need for transfusion with all its associated risks. Subsequently, the patient sign the consent. Pap smear result: Negative Pap/ HPV 16 positive, HPV 18- Urine test in office = Negative Procedure: During the procedure, the following steps were performed: A speculum was inserted, and acetic acid was applied. Colposcopy was conducted, allowing visualization of the transformation zone. Acetowhite lesions were identified at the 12+ 3+ 5 +6 +7 o'clock position. Cervical biopsies were obtained from the 12+ 3+ 5 +6 +7 o'clock position, followed by an endocervical curettage (ECC). Vaginoscopy of the upper vagina revealed no evidence of aceto-white lesions. Hemostasis was achieved using Monsel solution, and the patient tolerated the procedure well. Post-Procedure Instructions: The patient was advised to promptly contact the office or the after hours answering service or go to the emergency room if experiencing a temperature exceeding 100.4?F, abdominal pain, nausea/vomiting, or bleeding. Additionally, the patient was instructed to abstain from vaginal intercourse and bathtub use. The patient confirmed understanding of these instructions. Discharge Instructions: The patient was instructed to schedule a follow-up appointment in 2 weeks for further evaluation and management. Please note that this note was generated using a voice recognition program, and errors may have occurred during pin inserter. [id number] of cervix including upper vagina with biopsy and ECC Procedure code (CPT) selection complete Assessment & Plan Assessment & Plan (1) Human papillomavirus (HPV) type 16 DNA detected in cervical specimen: Code(s): R87.810 - Cervical high risk human papillomavirus (HPV) DNA test positive Category: Medical Plan: Discussed with the patient the result of her cervical screening, negative Pap with HPV 16 positive, its significance, risk of progression, persistence, and regression. the false positive/negative rate of a Pap smear as a screening test in detecting cervical cancer and the indication for a diagnostic test -colposcopy, biopsy, endocervical curettage. The patient verbalized understanding and agreed with the plan, all questions answered. Colposcopy, biopsy /ECC done, see procedure note Orders: Orders AMB Colposcopy Today R87.810 - Cervical high risk human papillomavirus (HPV) DNA test positive Coding Level of Care Code Procedure Only Diagnoses Human papillomavirus (HPV) type 16 DNA detected in cervical specimen R87.810 CPT Codes Colposcopy - CPT: 97140-Xcidvlway of cervix including upper vagina with biopsy and ECC ([id number])
--- OUTSIDE RECORDS SUMMARY | 2024-09-03 10:36 | XMS_ITS | Clinical Summary ---
Author Organization [facility] ity Address [address] [place] [address] Care Team Providers Care Air Intercept Controller Name Role Phone Unavailable Primary Care Provider [...]
== END 2024-09-03 10:37 | disposition home or self-care (01) ==
LOC: HO.HWS 10:01
PROVIDERS: PCP Nurse Practitioner Family; Visit Provider Obstetrics & Gynecology
DX: R87.810 Cervical high risk human papillomavirus (HPV) DNA test positive (principal)
CPT/HCPCS: 57454

== ENCOUNTER 2024-09-03 10:00 | Outpatient (REF) | payer OTHER, SELFPAY | END 2024-09-03 10:01 | disposition home or self-care (01) | LOC: HO.LNP 10:00 | PROVIDERS: PCP Nurse Practitioner Family; Visit Provider Obstetrics & Gynecology | DX: R87.810 Cervical high risk human papillomavirus (HPV) DNA test positive (principal) | CPT/HCPCS: 57454; 88305 ==

== ENCOUNTER 2024-09-24 11:54 | Outpatient (AMB) | payer OTHER, SELFPAY ==
--- NOTE | 2024-09-24 11:54 | A.OFFVIS_ITS ---
Intake Visit Reasons: colpo results Allergies morphine (MORPHINE) Allergy (Intermediate, Verified 09/03/24 10:06) NAUSEA Penicillins (PENICILLINS) Allergy (Intermediate, Verified 09/03/24 10:06) HIVES HPI Comments Details: The patient is scheduled a telehealth visit post colpo for follow-up. The patient is doing well with no complaints. The pathology showed the following: A. Endocervix, curettage: Fragments of benign endocervical mucosa with squamous metaplasia; negative for squamous intraepithelial lesion. B. Cervix, 3 o'clock, biopsy: Chronic cervicitis; negative for squamous intraepithelial lesion. C. Cervix, 5 o'clock, biopsy: Fragment of inflamed endocervical mucosa; no squamous component seen; negative for squamous intraepithelial lesion. D. Cervix, 6 o'clock, biopsy: Fragments of inflamed endocervical mucosa; no squamous component seen; negative for squamous intraepithelial lesion. E. Cervix, 7 o'clock, biopsy: Fragment of inflamed endocervical mucosa; no squamous component seen; negative for squamous intraepithelial lesion. F. Cervix, 12 o'clock, biopsy: Squamous mucosa with acute and chronic inflammation; no endocervical component seen; negative for squamous intraepithelial lesion [facility] Medical History Anxiety Surgical History Previous back surgery Family History Father Diabetes Maternal Aunt Breast cancer Social History Household Members: None Both parents involved: No Caregiver staying overnight: No Housing: Apartment Are you a primary foster care worker to a significant other at home: No Do you presently have visiting nurse or other home services: No 75 years or older and lives alone: No Alcohol intake: current Alcohol intake frequency: a few times a month Patient Tobacco Use Status: Former Tobacco user Tobacco use type: Cigarette Cigarettes Per Day: 4 Years Smoked: 15 e-Cigarette/Vaping Use: Never Used service: No Current occupational status: employed 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 Cognitive needs: No Hearing needs: No Vision needs: Yes (wear glasses) Female Reproductive History Menstrual Age of Menarche: 17 Review of Systems Const All systems reviewed & are unremarkable except as noted in HPI and below Reports as per HPI and Reports no additional complaints GI Reports no additional complaints Reports no additional complaints Telehealth Telehealth Telehealth Platform: Telephone Location of provider rendering services: practice address Location of patient: address on file Patient Identification confirmed using: Name, : Yes Telehealth method: video Patient verbally consented to treatment: Yes Patient verbally consented to billing insurance company: Yes Patient informed of any privacy concerns related to visit: Yes Minutes spent on Phone/Video with Pt.: 3 Assessment & Plan Assessment & Plan (1) Human papillomavirus (HPV) type 16 DNA detected in cervical specimen: Code(s): R87.810 - Cervical high risk human papillomavirus (HPV) DNA test positive Category: Medical Plan: Discussed with the patient the pathology results of the colposcopy biopsies & endocervical curettage. Discussed with the patient the sensitivity specificity, positive and negative predictive value in detecting cervical cancer in addition discussed the regression, persistence and progression rates. Recommended co- testing in 12 months, if cytology and or HPV are abnormal will proceed was colposcopy biopsy and endocervical curettage. Instructions given to the patient to schedule a co test appointment in 1 year. All questions answered the patient verbalized understanding. I spent a total of 20 minutes reviewing the chart, talking to the patient via video and documenting in the medical record. Coding Level of Care Code Tele Est Pt Level 3 (21116) Diagnoses Human papillomavirus (HPV) type 16 DNA detected in cervical specimen R87.810
--- OUTSIDE RECORDS SUMMARY | 2024-09-24 14:07 | XMS_ITS | Clinical Summary ---
Author Organization [facility] ity Address [address] [place] [address] Care Team Providers Care Pilot Safety Inspector Name Role Phone Unavailable Primary Care Provider [...] Screening: P ap Smear 10/17/2003 COVID-19 Vaccine ( - 2023-2 5 season) 2023 Influenza Vaccine (Season Ended) [...]
== END 2024-09-24 12:36 | disposition home or self-care (01) ==
LOC: HO.HWS 11:54
PROVIDERS: PCP Nurse Practitioner Family; Visit Provider Obstetrics & Gynecology
DX: R87.810 Cervical high risk human papillomavirus (HPV) DNA test positive (principal)
CPT/HCPCS: 99213

== ENCOUNTER 2025-01-20 07:50 | Outpatient (REF) | payer OTHER, SELFPAY ==
[2025-01-20 11:54] LABS: Baso%MD 0.9 %; Eos%MD 2.7 %; Hematocrit 41.8 % (37.0-47.0); Hemoglobin 14.4 g/dl (12.0-16.0); IG%MD 0.4 %; Lymph%MD 23.5 %; Mean Corpuscular HGB Conc 34.4 g/dl (31.0-35.0); Mean Corpuscular Hemoglobin 34.2 pg (27.0-33.0); Mean Corpuscular Volume 99.3 fL (80.0-98.0); Mono%MD 5.9 %; NRBC Abs Auto 0.000 X10*3/uL (0.0-0.012); NRBC Pct Auto 0.0 /100WBC (0.0-0.2); Neut%MD 66.6 %; Platelet Count 216 X10*3/uL (160-400); Red Blood Count 4.21 X10*6/uL (4.20-5.50); White Blood Count 7.8 X10*3/uL (4.8-10.8)
[2025-01-20 12:47] LABS: Microalbum/Creatinine Ratio Ur 3.5 ug/mg cr (<30)
[2025-01-20 13:01] LABS: Alanine Aminotransferase 25 U/L (0-31); Albumin Level 4.4 g/dL (3.5-5.0); Alkaline Phosphatase 58 U/L (39-117); Anion Gap 9 (12-20); Aspartate Amino Transferase 18 U/L (5-31); Blood Urea Nitrogen 10 mg/dL (9-16); Calcium 9.0 mg/dL (8.4-10.2); Carbon Dioxide 26 mmol/L (22-29); Chloride 109 mmol/L (96-108); Cholesterol 122 mg/dL (<200); Estimated Glomerular Filt Rate > 60; HDL Cholesterol 43 mg/dL (>40); Iron 196 mcg/dL (30-160); Percent Iron Saturation 80 % (15-50); Potassium 4.2 mmol/L (3.3-5.1); Sodium 140 mmol/L (135-145); Total Iron Binding Capacity 246 mcg/dL (228-428); Total Protein 6.9 g/dL (6.5-8.0); Triglycerides 109 mg/dL (<150); Unsaturated Iron Binding 50 ug/dL
[2025-01-20 13:28] LABS: Atypical Lymph Absolute Manual 0.2 x10*3/uL; Atypical Lymphs Percent Manual 2 % (0-6); Basophils Abs Manual 0.1 X10*3/uL (0.0-0.2); Basophils Percent Manual 1 % (0-2); Eosinophils Absolute Manual 0.4 X10*3/uL (0.0-0.4); Eosinophils Percent Manual 5 % (0-4); Lymphocytes Absolute Manual 1.8 X10*3/uL (1.2-4.9); Lymphocytes Percent Manual 23 % (20-40); Monocytes Absolute Manual 0.5 X10*3/uL (0.1-1.2); Monocytes Percent Manual 7 % (2-11); Neutrophils Percent Manual 62 % (45-73)
[2025-01-20 13:36] LABS: Band Neutrophils Percent 0 % (3-5); Large Platelet PRESENT; Neutrophils Absolute Manual 4.8 X10*3/uL (2.0-8.3); RBC Morphology NORMAL
[2025-01-20 13:44] LABS: HBS Num1 5.63 mIU/mL (0-7.99); HBc Num1 0.09 S/CO (0.00-0.79); HBsAGNum1 0.31 S/CO (0.00-0.99); Hepatitis A Antibody IgM 0.12 Index (0-0.79); Hepatitis B Surface Antigen Negative (Negative); ~HepC Num1 0.06 S/CO (0.00-0.79); ~Hepatitis A Antibody IgM Nonreactive (Nonreactive); ~Hepatitis B Surface Antibody NONREACTIVE (Nonreactive); ~Hepatitis C Antibody Nonreactive (Nonreactive)
[2025-01-20 13:53] LABS: Folate 9.6 ng/mL (> or = 4.0); Vitamin B12 479 pg/mL (200-900)
[2025-01-20 14:01] LABS: Ferritin 209 ng/mL (10-250)
== END 2025-01-20 07:51 | disposition home or self-care (01) ==
LOC: HO.WFDLDS 07:50
PROVIDERS: Visit Provider Nurse Practitioner Family
DX: Z01.419 Encounter for gynecological examination (general) (routine) without abnormal findings (principal); Z00.00 Encounter for general adult medical examination without abnormal findings; R79.89 Other specified abnormal findings of blood chemistry; D75.89 Other specified diseases of blood and blood-forming organs; F41.1 Generalized anxiety disorder; F13.21 Sedative, hypnotic or anxiolytic dependence, in remission; R87.810 Cervical high risk human papillomavirus (HPV) DNA test positive; M77.31 Calcaneal spur, right foot; K21.9 Gastro-esophageal reflux disease without esophagitis; N95.1 Menopausal and female climacteric states; M53.86 Other specified dorsopathies, lumbar region; L98.9 Disorder of the skin and subcutaneous tissue, unspecified; F10.21 Alcohol dependence, in remission; F17.210 Nicotine dependence, cigarettes, uncomplicated; Z28.21 Immunization not carried out because of patient refusal; Z71.6 Tobacco abuse counseling
CPT/HCPCS: 36415; 80053; 80061; 81256; 82043; 82306; 82570; 82607; 82728; 82746; 83036; 83540; 84443; 85007; 85027; 86704; 86706; 86709; 86803; 87340; 96127

== ENCOUNTER 2025-01-20 07:50 | Outpatient (AMB) | payer OTHER, SELFPAY ==
--- NOTE | 2025-01-20 07:52 | MHC.PC.OV ---
Vital Signs 01/20/25 07:57 Height 5 ft 4 in Weight 170 lb 2 oz BMI 29.2 BP 110/67 Blood Pressure Location Lt brachial Position Sitting Respiration 12 Pulse 53 Pulse Source Pulse Oximeter Temp 97.2 F Temp Source Oral Pulse Oximetry (%) 99 Oxygen Delivery Method Room Air Intake Visit Reasons: CPE Intake Note: CPE Pumper Gager Apprentice Required: No Allergies morphine (MORPHINE) Allergy (Intermediate, Verified 01/20/25 08:03) NAUSEA Penicillins (PENICILLINS) Allergy (Intermediate, Verified 01/20/25 08:03) HIVES Medication List - Last Reconciled 01/20/25 by BREE Rondon- No Known Home Meds Tobacco use date assessed: 01/20/25 Dental Screening Dental Screen Date: 01/20/25 Did you have a dental visit in the last 12 months?: Yes Did you have a dental problem in the last 6 months where you did not have access to dental care?: No Was dental information given to patient?: Patient has dentist HPI HPI Comments History of Present Illness Details 44 y/o F with TOMMIE, tobacco dependence current smoke, benzo dependence and etoh dependence in remission, HPV, fhx breast ca (maternal aunt) Hospitalized: [place] 1 year for benzo/etoh dependence Social works with insurance Surgical hx: [id number] 2015 Dr Rodriguez @ [facility] Family hx: Maternal aunt breast ca unsure of details - ; 2 sisters w/ no cancer history (1 sister is half); Mom no cancer history Health Maintenance: Mammo 02/2024 Pap 07/2024 HPV + Tdap 2016, Declined Flu Specialists: Podiatry didnt follow through. 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 History of Present Illness The patient is a 44-year-old female presenting with a complete physical examination. Generalized Anxiety Disorder: - History without current medication. Tobacco Dependence: - Current smoker, two cigarettes daily. - Attempting cessation. Benzodiazepine and Alcohol Dependence: - Both in remission. HPV Infection: - High-risk strain. - Monitored recently with biopsy. Gastroesophageal Reflux Disease: - New heartburn symptoms. - Started omeprazol & this helped some. Perimenopausal Symptoms: - Mood and energy changes, irregular menstruation. Wonders about HRT Back Pain post-microdiscectomy (L5-S1): - Intermittent right leg sciatica, using ibuprofen frequently. Social History - Recently moved from [place] to [place]. 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 - Actively attempting to quit smoking. - Reports reduced drinking. - Exercising at the gym with a focus on weight loss. - Currently on a weight loss journey, recently lost four pounds. - Consumes a diet that includes tuna and avoids fast/junk food. - Interest in discussing potential hormonal imbalances impacting weight loss. Health Maintenance - Recent Pap smear and mammogram reported as normal. - Emphasis on the necessity for yearly Pap smears. - Tetanus vaccination up to date. - Declined flu vaccination. - Eye examination needed as the current prescription is outdated. Review of Systems - Gastrointestinal: Reports heartburn. - Respiratory: Denies recent infections or respiratory illness. - Gynecological: Reports increased menstrual frequency and mood changes. Physical Exam General: Well developed, well nourished, in no acute distress. Appears stated age. Head: Normocephalic, atraumatic. Eyes: Pupils are equal, round and reactive to light and accommodation. Conjunctivae are clear. Scleras nonicteric bilat. Vision grossly normal. Ears: TMs clear AU, EACS WNL Nose: Patent, without discharge. Neck: No carotid bruit bilat. Supple, no adenopathy or thyromegaly. Breast: Edu on SBE Lungs: Clear to auscultation bilaterally. No rales, rhonchi or wheeze noted. Good air flow in all crabtree. Heart: Regular rate and rhythm. No murmurs, click, rubs or gallops are noted. Abdomen: Bowel sounds present in all quadrants. The abdomen is soft, nontender, with no masses or organomegaly noted. No hernias are noted. : Deferred. Reviewed recommendations for routine NETWORK CONTR[employer] OPERATORS SUPERVISOR. Pulses: Peripheral pulses are equal and palpable bilaterally. Extremities: No clubbing, cyanosis nor edema is noted. Neurologic: Gait and station normal. Cranial Nerves 2-12 intact. Motor strength grossly symmetrical and intact. No sensory loss. Balance normal. Skin: No rashes, ulcers, or lesions noted. Turgor is good. Skin color is good. Hair and nails are without abnormalities. raised skin lesion R cheek, sandpaper raised skin lesion left low back Psych: Normal eye contact, affect and mood appropriate, and normal interactions. Patient is alert and appropriate to context. Results Pending Discussion Notes During the consultation, I discussed the importance of smoking cessation with the patient, emphasizing its impact on improving her ability to clear HPV. I explained the role of annual Pap smears and stressed the significance of regular follow-ups for HPV surveillance. For her heartburn symptoms, I recommended a course of omeprazole for eight weeks, discussing common side effects and the plan to evaluate efficacy after completing the course. The potential relationship between ibuprofen use and reflux symptoms was addressed, recommending substituting with Celebrex for pain management due to its gastroprotective properties. I advised further investigation into her perimenopausal symptoms including possibly meeting with a hormone specialist due to her sister's similar presentation. Nutritional guidance was offered through a automotive internet sales manager referral to support her weight loss efforts. Dermatology and podiatry referrals were provided for skin lesions and foot concerns, respectively. Additional labs were recommended, including thyroid testing due to her stated concerns about energy levels and weight. Patient was given time to ask questions. All questions were answered to their satisfaction. Assessment and Plan 1. Generalized Anxiety Disorder - No medications, monitoring. 2. Tobacco Dependence - Encourage cessation efforts. 3. Benzodiazepine and Alcohol Dependency - Maintain remission, monitor periodically. 4. HPV Infection - Annual Pap smears, routine surveillance. Quit smoking! 5. Gastroesophageal Reflux Disease - Omeprazole prescription x 8 weeks, if no resolution, schedule FU, shift to Celebrex. Avoid NSAIDS and triggers. 6. Perimenopausal Symptoms - Hormone specialist referral declined. Can consider in future; awake HRT contraindicated w/ toboacco use 7. Back Pain post-microdiscectomy (L5-S1) - Use Celebrex, monitor symptoms. - If cont or worsens, can refer to Dr Rodriguez @ [facility] who did the surgery 8. Weight Management - Hospitality Ambassador referral, continued encouragement. 9. Skin lesions, refer to Derm 10 Heel spur, R Refer [place] [facility] 11. Glasses, refer to [facility] Patient Instructions - Take omeprazole every morning as directed for eight weeks, then reassess. - Stop Ibuprofen; start Celebrex as needed for pain. - Schedule annual Pap smear and follow up for biopsy results. - See blacktop spreader and follow their dietary advice. - Quit smoking; you are doing well by cutting down. - Follow up with referrals: podiatry, dermatology, hormone specialist. - Update your address at the front office medical assistant. - RTO 1 year CPE, sooner PRN Consent Patient was informed and verbally consented to the use of an ambient scribe for clinic note documentation during this visit. An additional 20 minutes was spent addressing the problem(s) noted at todays visit. This includes time spent before the visit reviewing the chart, time spent during the visit, and time spent after the visit on documentation reviewing laboratory results, diagnostic imaging, medications, performing a medically necessary evaluation, counseling on diagnoses, care coordination, ordering appropriate tests, ordering appropriate medications, review of tests performed by other providers, reporting test results with the patient, communication with other healthcare providers. [facility] Medical History Anxiety Surgical History Previous back surgery Family History Father Diabetes Maternal Aunt Breast cancer Social History Household Members: None Both parents involved: No Caregiver staying overnight: No Housing: Apartment Are you a primary resident caregiver to a significant other at home: No Do you presently have visiting nurse or other home services: No 75 years or older and lives alone: No Alcohol intake: current Alcohol intake frequency: a few times a month Patient Tobacco Use Status: Former Tobacco user Tobacco use type: Cigarette Cigarettes Per Day: 4 Years Smoked: 15 e-Cigarette/Vaping Use: Never Used Second Hand Smoke Exposure: No service: No Current occupational status: employed 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 1. Little interest or pleasure in doing things: not at all 2. Feeling down, depressed, or hopeless: not at all 3. Trouble falling or staying asleep, or sleeping too much: not at all 4. Feeling tired or having little energy: not at all 5. Poor appetite or overeating: not at all 6. Feeling bad about yourself - or that you are a failure or have let yourself or your family down: not at all 7. Trouble concentrating on things, such as reading the newspaper or watching television: not at all 8. Moving or speaking so slowly that other people could have noticed. Or the opposite - being so fidgety or restless that you have been moving around a lot more than usual: not at all 9. Thoughts that you would be better off or of hurting yourself in some way: not at all Total score: 0 Depression Screening Interpretation: Negative Depression Screening Done: Yes 66074 - PHQ-9 Billing: Yes Source: Developed by Drs. Cy Walter, Eleni Estrada, Ronnie Francis and colleagues, with an educational tracy from [employer]. Thrive Questionnaire Date Thrive assessed: 01/20/25 I am a: Patient What is your living situation today?: I have a steady place to live Within the past 12 months, did the food you bought not last and you didn't have the money to get more?: Never true Within the past 12 months, did you worry whether your food would run out before you got money to buy more?: Never true Do you have trouble paying for medicines?: No Do you have trouble getting transportation to medical appointments?: No Do you have trouble paying your heating and electricity bill?: No Do you have trouble taking care of your child, family member or friend?: No Do you have trouble with day-to-day activities such as bathing, preparing meals, shopping, managing finances, etc.?: No Are you currently unemployed and looking for a job?: No Are you interested in more education?: No Please select the resources that you would like help with: None Currently or been in a relationship where the following occur: No concerns reported THRIVE Score: 0 AUDIT C Alcohol Use Questionnaire (AUDIT-C) 1. How often do you have a drink containing alcohol?: Never 2. How many drinks containing alcohol do you have on a typical day when you are drinking?: 1 or 2 3. How often do you have six or more drinks on one occasion?: Never Total Score: 0 Score Reviewed/Action Taken: Yes TOMMIE-7 AMB Questionnaire TOMMIE-7 Date TOMMIE - 7 assessed: 01/20/25 Feeling nervous, anxious, or on edge: 0 = Not at all Not being able to stop or control worryin = Not at all Worrying too much about different things: 0 = Not at all Trouble relaxin = Not at all Being so restless that it is hard to sit still: 0 = Not at all Becoming easily annoyed or irritable: 0 = Not at all Feeling afraid as if something awful might happen: 0 = Not at all Total TOMMIE-7 score (0-4 normal; 5-9 mild; 10-14 moderate; 15-21 severe): 0 Source: Developed by Drs. Cy Walter, Eleni Estrada, Ronnie Francis and colleagues, with an educational tracy from [employer]. TOMMIE-7 Assessment Billing TOMMIE-7 Assessment Tool: TOMMIE-7 Assessment 06139 Physical exam (Primary Care) Vital Signs: Last Vital Signs Temp 97.2 F 01/20/25 07:57 Pulse 53 01/20/25 07:57 Resp 12 01/20/25 07:57 BP 110/67 01/20/25 07:57 Pulse Ox 99 01/20/25 07:57 Oxygen Delivery Method Room Air 01/20/25 07:57 BMI result Body Mass Index 29.2 Tobacco/Smoking Status: Tobacco use Status Tobacco use date assessed 01/20/25 01/20/25 07:55 Patient Tobacco Use Status Former Tobacco user 01/20/25 07:55 Tobacco use type Cigarette 01/20/25 07:55 e-Cigarette/Vaping Use Never Used 01/20/25 07:55 Are you ready to quit: Yes Tobacco cessation counseling provided: Yes Items discussed: Nicotine replacement, QuitWorks and Other Relapse Prevention: discussed the importance of a supportive environment, discussed extending NRT, discussed negative mood or depression after quitting, weight gain after smoking is common and discussed dietary, exercise and/or lifestyle changes Number of minutes spent counselin CPT code: 81265 - 4-10 Minutes PHQ-9: PHQ-9 Score PHQ-9: Total score 0 01/20/25 07:59 Depression Screening Interpretation: Negative Thrive Assessment: Date of Thrive Assessment Date Thrive assessed 01/20/25 01/20/25 07:55 Currently or been in a relationship where the following occur: No concerns reported Coding Level of Care Code Est Pt Level 3 (11790) Est Pt Prev Care 40-64y(24104) Diagnoses Encounter for general adult medical examination without abnormal findings Z00.00 TOMMIE (generalized anxiety disorder) F41.1 Benzodiazepine dependence in remission F13.21 Alcohol dependence in remission F10.21 Substance use status: in remission BMI 29.0-29.9,adult Z68.29 Human papillomavirus (HPV) type 16 DNA detected in cervical specimen R87.810 Macrocytosis without anemia D75.89 High total iron binding capacity R79.89 Tobacco dependence F17.200 Laboratory exam ordered as part of routine general medical examination Z00.00 Calcaneal spur of right foot M77.31 Laterality: right GERD (gastroesophageal reflux disease) K21.9 Mariann-menopausal N95.1 Sciatica of right side associated with disorder of lumbar spine M53.86 Skin lesion L98.9 Influenza vaccination declined Z28.21 Additional Codes TOMMIE-7 Assessment Billing - TOMMIE-7 Assessment Tool: TOMMIE-7 Assessment 66515 ([id number]) PHQ-9 - 94378 - PHQ-9 Billing: Yes ([id number]) Vital Signs *Quality* - CPT code: 70221 - 4-10 Minutes ([id number]) Assessment & Plan Assessment & Plan (1) Encounter for general adult medical examination without abnormal findings: Onset Date: ~01/20/25 Code(s): Z00.00 - Encounter for general adult medical examination without abnormal findings Category: Medical (2) TOMMIE (generalized anxiety disorder): Code(s): F41.1 - Generalized anxiety disorder Category: Medical (3) Benzodiazepine dependence in remission: Code(s): F13.21 - Sedative, hypnotic or anxiolytic dependence, in remission Category: Medical (4) EtOH dependence: Code(s): F10.20 - Alcohol dependence, uncomplicated Category: Medical Qualifiers: Substance use status: in remission Qualified Code(s): F10.21 - Alcohol dependence, in remission (5) BMI 29.0-29.9,adult: Code(s): Z68.29 - Body mass index [BMI] 29.0-29.9, adult Category: Medical (6) Human papillomavirus (HPV) type 16 DNA detected in cervical specimen: Code(s): R87.810 - Cervical high risk human papillomavirus (HPV) DNA test positive Category: Medical (7) Macrocytosis without anemia: Code(s): D75.89 - Other specified diseases of blood and blood-forming organs Category: Medical (8) High total iron binding capacity: Code(s): R79.89 - Other specified abnormal findings of blood chemistry Category: Medical (9) Tobacco dependence: Comment: Smoking Cessation How to Quit There are a lot of ways to quit smoking and many resources to help you. Family members, friends, and co-workers may be supportive or encouraging, but to be successful the desire and commitment to quit must be your own. Most people who have been able to successfully quit smoking made at least one unsuccessful attempt in the past. Try not to view past attempts to quit as failures, but rather as learning experiences. Stopping smoking or using smokeless tobacco is difficult, but anyone can do it. Know the symptoms to expect when you stop. Common symptoms include: ? An intense craving for nicotine ? Anxiety, tension, restlessness, frustration, or impatience ? Difficulty concentrating ? Drowsiness or trouble sleeping, as well as bad dreams and nightmares ? Drowsiness and trouble sleeping ? Headaches ? Increased appetite and weight gain ? Irritability or depression How severe your symptoms are depends on how long you smoked and how many cigarettes you smoked each day. Feel ready to quit? ? First and foremost, set a quit date and quit completely on that day. Before your quit date, you may begin reducing your cigarette use. But remember, there is no safe level of cigarette smoking. ? List the reasons why you want to quit. Include both short- and long-term benefits. ? Identify the times you are most likely to smoke. For example, do you tend to smoke when feeling stressed or down? When out at night with friends? While drinking coffee or alcohol? When bored? While driving? Right after a meal or sex? During a work break? While watching TV or playing cards? When you are with other smokers? ? Let all of your friends, family, and co-workers know of your plan to stop smoking and your quit date. Just being aware that they know what you're going through can be helpful, especially when you are grumpy. ? Get rid of all your cigarettes just before the quit date, and clean out anything that smells like smoke, such as clothes and furniture. Make a plan about what you will do instead of smoking at those times when you are most likely to smoke. ? Be as specific as possible. For example, drink tea instead of coffee -- tea may not trigger the desire for a cigarette. Or, take a walk when you feel stressed. ? Remove ashtrays and cigarettes from the car. Place pretzels or hard candies there instead. Pretend-smoke with a straw. ? Find activities that focus your hands and mind but are not taxing or fattening. Computer games, solitaire, knitting, sewing, and crossword puzzles may help. ? If you normally smoke after eating, find other ways to end a meal. Play a tape or CD, eat a piece of fruit, get up and make a phone call, or take a walk (a good distraction that also angel calories). Make other changes in your lifestyle. ? Change your daily schedule and habits. Eat at different times or eat several small meals instead of three large ones. Sit in a different chair or even a different room. ? Satisfy your oral habits by eating celery or other low-calorie snack, chewing sugarless gum, or sucking on a cinnamon stick. ? Go to public places and restaurants where smoking is prohibited or restricted. ? Eat regular meals and don't eat too much candy or sweet things. ? Get more exercise. Take walks or ride a bike. Exercise helps relieve the urge to smoke. Set short-term quitting goals and reward yourself when you meet them. ? Every day, put the money you normally spend on cigarettes in a jar. Then buy something pleasurable after a period of time. ? Try not to think about all the days ahead you will need to avoid smoking. Take it one day at a time. ? Even one puff or one cigarette will make your desire for more cigarettes even stronger. However, it is normal to make mistakes. So even if you have one cigarette, you don't need to take the next one. Other tips to help you quit smoking and stick to it: ? Enroll in a smoking cessation program (hospitals, health departments, community centers, and work sites often offer programs). Learn about self-hypnosis or other techniques. ? Ask your health care provider about prescription medications that are safe and appropriate for you. ? Find out about nicotine patches, gum, and sprays. The [employer]'s web site -- www.cancer.org -- is an excellent resource for smokers who are trying to quit, and the [employer] [place] [employer] can help some smokers kick the habit. Above all, don't get discouraged if you aren't able to quit smoking the first time. Nicotine addiction is a hard habit to break. Try something different next time. Develop new strategies, and try again. Many people take several attempts to finally kick the habit. Code(s): F17.200 - Nicotine dependence, unspecified, uncomplicated Category: Medical (10) Laboratory exam ordered as part of routine general medical examination: Code(s): Z00.00 - Encounter for general adult medical examination without abnormal findings Category: Medical (11) Heel spur: Comment: right foot Code(s): M77.30 - Calcaneal spur, unspecified foot Category: Medical Qualifiers: Laterality: right Qualified Code(s): M77.31 - Calcaneal spur, right foot (12) GERD (gastroesophageal reflux disease): Code(s): K21.9 - Gastro-esophageal reflux disease without esophagitis Category: Medical (13) Mariann-menopausal: Code(s): N95.1 - Menopausal and female climacteric states Category: Medical (14) Sciatica of right side associated with disorder of lumbar spine: Code(s): M53.86 - Other specified dorsopathies, lumbar region Category: Medical Plan: . (15) Skin lesion: Code(s): L98.9 - Disorder of the skin and subcutaneous tissue, unspecified Category: Medical (16) Influenza vaccination declined: Onset Date: ~01/20/25 Code(s): Z28.21 - Immunization not carried out because of patient refusal Category: Medical Plan . Orders: Orders Complete Blood Count no Diff Today D75.89 - Other specified diseases of blood and blood-forming organs, F17.200 - Nicotine dependence, unspecified, uncomplicated, R79.89 - Other specified abnormal findings of blood chemistry, Z00.00 - Encounter for general adult medical examination without abnormal findings Comprehensive Met. Panel Today D75.89 - Other specified diseases of blood and blood-forming organs, F17.200 - Nicotine dependence, unspecified, uncomplicated, R79.89 - Other specified abnormal findings of blood chemistry, Z00.00 - Encounter for general adult medical examination without abnormal findings Microalbumin, Random (w Creat) Today D75.89 - Other specified diseases of blood and blood-forming organs, F17.200 - Nicotine dependence, unspecified, uncomplicated, R79.89 - Other specified abnormal findings of blood chemistry, Z00.00 - Encounter for general adult medical examination without abnormal findings Hemoglobin A1c Today D75.89 - Other specified diseases of blood and blood-forming organs, F17.200 - Nicotine dependence, unspecified, uncomplicated, R79.89 - Other specified abnormal findings of blood chemistry, Z00.00 - Encounter for general adult medical examination without abnormal findings Lipid Panel Today D75.89 - Other specified diseases of blood and blood-forming organs, F17.200 - Nicotine dependence, unspecified, uncomplicated, R79.89 - Other specified abnormal findings of blood chemistry, Z00.00 - Encounter for general adult medical examination without abnormal findings TSH reflex Free T4 Today D75.89 - Other specified diseases of blood and blood-forming organs, F17.200 - Nicotine dependence, unspecified, uncomplicated, R79.89 - Other specified abnormal findings of blood chemistry, Z00.00 - Encounter for general adult medical examination without abnormal findings Vitamin B12 and Folate Today D75.89 - Other specified diseases of blood and blood-forming organs, F17.200 - Nicotine dependence, unspecified, uncomplicated, R79.89 - Other specified abnormal findings of blood chemistry, Z00.00 - Encounter for general adult medical examination without abnormal findings Vitamin D 25-OH Total Today D75.89 - Other specified diseases of blood and blood-forming organs, F17.200 - Nicotine dependence, unspecified, uncomplicated, R79.89 - Other specified abnormal findings of blood chemistry, Z00.00 - Encounter for general adult medical examination without abnormal findings Referrals Podiatry Referral M77.31 - Calcaneal spur, right foot Nutrition/Dietitian Referral Z68.29 - Body mass index [BMI] 29.0-29.9, adult Optometry Referral H53.8 - Other visual disturbances Dermatology Referral L98.9 - Disorder of the skin and subcutaneous tissue, unspecified Medications: New omeprazole take for 8 weeks then STOP 20 mg PO DAILY 30 caps 1RF celecoxib (Celebrex) 200 mg PO BID PRN 60 caps 2RF pain Patient Instructions: Health screenings for women You should visit your health care provider from time to time, even if you are healthy. The purpose of these visits is to: Screen for medical issues Assess your risk for future medical problems Encourage a healthy lifestyle Update vaccinations and other preventive care services Help you get to know your provider in case of an illness Information Even if you feel fine, you should still see your provider for regular checkups. These visits can help you avoid problems in the future. For example, the only way to find out if you have high blood pressure is to have it checked regularly. High blood sugar and high cholesterol levels also may not have any symptoms in the early stages. A simple blood test can check for these conditions. There are specific times when you should see your provider or receive specific health screenings. The [place] Preventive Services Task Force publishes a list of recommended screenings. Below are screening guidelines for women ages 18 to 39. BLOOD PRESSURE SCREENING Your blood pressure should be checked at least once every 3 to 5 years if: Your blood pressure is in the normal range (top number less than 120 mm Hg and bottom number less than 80 mm Hg) You don't have risk factors for high blood pressure Ask your provider if you need your blood pressure checked more often if: The top number is 120 to 129 mm Hg or the bottom number is 70 to 79 mm Hg You have diabetes, heart disease, kidney problems, are overweight, or have certain other health conditions You have a first-degree relative with high blood pressure You are Black You had high blood pressure during a If the top number is 130 mm Hg or greater or the bottom number is 80 mm Hg or greater, this is considered stage 1 hypertension. Schedule an appointment with your provider to learn how you can reduce your blood pressure. Watch for blood pressure screenings in your area. Ask your provider if you can stop in to have your blood pressure checked. BREAST CANCER SCREENING Experts do not agree about the benefits of breast self-exams in finding breast cancer or saving lives. Talk to your provider about what is best for you. A screening mammogram is not recommended for most women under age 40. Your provider may discuss and recommend mammograms, MRI scans, or ultrasounds if you have an increased risk for breast cancer, such as: A mother or sister who had breast cancer at a young age (most often starting screening earlier than the age the close relative was diagnosed) You carry a high-risk genetic marker CERVICAL CANCER SCREENING Cervical cancer screening should start at age 21 years unless your provider advises otherwise. After the first test: Women ages 21 through 29 should have a Pap test every 3 years. Exoprts do not agree on whether HPV testing is recommended for this age group. Women ages 30 through 65 should be screened with either a Pap test every 3 years or the HPV test every 5 years or both tests every 5 years (called cotesting ). Women who have been treated for precancer (cervical dysplasia) should continue to have Pap tests for 20 years after treatment or until age 65, whichever is longer. If you have had your uterus and cervix removed (total hysterectomy), and you have not been diagnosed with cervical cancer or precancer (high grade cervical neoplasia), you do not need cervical cancer screening. CHOLESTEROL SCREENING Cholesterol screening should begin at: Age 45 for women with no known risk factors for coronary heart disease Age 20 for women with known risk factors for coronary heart disease Repeat cholesterol screening should take place: Every 5 years for women with normal cholesterol levels More often if changes occur in lifestyle (including weight gain and diet) More often if you have diabetes, heart disease, kidney problems, or certain other conditions DIABETES SCREENING You should be screened for diabetes starting at age 35 and then repeated every 3 years if you have no risk factors for diabetes. Screening may need to start earlier and be repeated more often if you have other risk factors for diabetes, such as: You have a first degree relative with diabetes. You are overweight or have obesity. You have high blood pressure, prediabetes, or a history of heart disease. Screening for diabetes should be done if you are planning to become and you are overweight and have other risk factors such as high blood pressure. DENTAL EXAM Go to the dentist once or twice every year for an exam and cleaning. Your dentist will evaluate if you need more frequent visits. EYE EXAM Have an eye exam every 5 to 10 years before age 40. If you have vision problems, have an eye exam every 2 years or more often if recommended by your provider. You should have an eye exam that includes an examination of your retina (back of your eye) at least every year if you have diabetes. IMMUNIZATIONS Commonly needed vaccines include: Flu shot: get one every year. COVID-19 vaccine: ask your provider what is best for you. Tetanus-diphtheria and acellular pertussis (Tdap) vaccine: have one at or after age 19 as one of your tetanus-diphtheria vaccines if you did not receive it as an adolescent. Tetanus-diphtheria: have a booster (or Tdap) every 10 years. Varicella vaccine: receive 2 doses if you never had chickenpox or the varicella vaccine. Hepatitis B vaccine: receive 2, 3, or 4 doses, depending on your exact circumstances. Measles, mumps, and rubella (MMR) vaccine: receive 1 to 2 doses if you are not already immune to MMR. Your provider can tell you if you are immune. Ask your provider about the human papillomavirus (HPV) vaccine if: You have not received the HPV vaccine in the past You have not completed the full vaccine series (you should catch up on this shot) Ask your provider if you should receive other immunizations if you have certain health problems that increase your risk for some diseases such as pneumonia. INFECTIOUS DISEASE SCREENING Women who are sexually active should be screened for chlamydia and gonorrhea up until age 25. Women 25 years and older should be screened for chlamydia and gonorrhea if at high risk. Screening for hepatitis C: All adults ages 18 to 79 should get a one-time test for hepatitis C. people should be screened at every . Screening for human immunodeficiency virus (HIV): All people ages 15 to 65 should get a one-time test for HIV. Depending on your lifestyle and medical history, you may also need to be screened for infections such as syphilis and HIV, as well as other infections. PHYSICAL EXAM All adults should visit their provider from time to time, even if they are healthy. The purpose of these visits is to: Screen for disease Assess your risk of future medical problems Encourage a healthy lifestyle Update your vaccinations and other preventive care services Maintain a relationship with a provider in case of an illness Your height, weight, and BMI should be checked at every exam. During your exam, your provider may ask you about: Depression and anxiety Diet and exercise Alcohol and tobacco use Safety issues, such as using seat belts, smoke detectors, and intimate partner violence Your medicines and risk for interactions SKIN SELF-EXAM Your provider may check your skin for signs of skin cancer, especially if you're at high risk, such as if you: Have had skin cancer before Have close relatives with skin cancer Have a weakened immune system OTHER SCREENING Talk with your provider about colon cancer screening if you have a strong family history of colon cancer or polyps, or if you have had inflammatory bowel disease or polyps yourself. Routine bone density screening of women under 40 is not recommended.
--- OUTSIDE RECORDS SUMMARY | 2025-01-20 07:54 | XMS_ITS | Patient Health Record ---
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 Name Role Phone Nicolette Lainez Unavailable [phone] ALLERGIES Allergen (clinical drug ingredient) Drug/Non Drug [...] Notes Problem Dysmenorrhea (N94.6) Active confirmed Dysmenorrhea (339770587) Problem BMI 32.0-32.9,adult (Z68.32) Active confirmed BMI 30+ - obesity (370494422) Problem BMI 31.0-31.9,adult (Z68.31) Active confirmed Body mass index 30.00 to 34.99 (348406598352504 ) Problem Painful menstruation (N94.6) Active confirmed Painful menstruation (338656377) PLAN OF TREATMENT Pending Test Test Name Order Date Bilateral Screening Mammogram w/ optiona l Tomosynthesis 11/01/2022 Insurance Providers Payer Name Payer Address Payer Phone Subscriber Number Group Number Insured Name Patient Relationship to Insured Coverage Start Date Coverage End Date Bc/Bs [place] [address] [place] [address] [phone] [id number] Debbie Muller Self - patient is the insured 2 MEDICAL (GENERAL) HISTORY Medical History History ICD Code H/O OVARIAN CYST H/O CYST ON CERVIX 1 CHLAMYDIA A TEEN H/O ANXIETY H/O DEPRESSION Surgical History Surgery Date(Month/Year) BACK SURGERY 2015 Hospitalization History Reason Date(Month/Year) UTI 2021
--- OUTSIDE RECORDS SUMMARY | 2025-01-20 07:54 | XMS_ITS | Clinical Summary ---
Author Organization [facility] Address [address] [place] [phone] Phone Care Team Providers Care Secretary To Board Of Commissioners Name Role Phone Lakesha Gtz NP Primary Care Provider Allergies Active Allergy Reactions Criticality Noted Date Comments Guaifenesin 06/28/2023 Morphine 04/30/2023 Penicillin 04/30/2023 Medications Medication-Free Text Vitamin B 12 Active ALPRAZolam (XANAX) 0.25 MG tabletIndicatio ns:Anxiety state Take 1-2 tablets (0.25-0.5 mg total) by mouth daily as needed. May repeat after 2-3 hrs prn 20 tablet 9 Active Additional Information Patient not taking.Reported on 08/30/2023 ibuprofen-glyce rin 600 mg Kit Take 600 mg by mouth. 3 Active hydrOXYzine (VISTARIL) 25 MG capsule 50 mg. 3 Active ketoconazole 2 % cream Apply topically daily. 60 g 4 Active Active Problems No known active problems Immunizations Immunization Administration Dates Next Due Influenza trivalent preservative free intraderma l 02/04/2014 Family History Medical History Relation Comments Other Father No health proble ms. Other Mother No health proble ms. Other Paternal Grandmother Breast lump removed, ? cancer. Relation Status Comments Father Alive Mother Alive Paternal Grandmother Alive Social History Tobacco Use Types Packs/Day Years Used Date Smoking Tobacco: Never Smokeless Tobacco: Never Tobacco Cessation:Counseling Given: Not Answered Alcohol Use Standard Drinks/Week Comments Yes 0 (1 standard drink = 0.6 oz pur e alcohol) Occassionally Education Answer Date Recorded Are you interested in more education? Not on natalie e 07/28/2022 Are you concerned about learning? Not on file 07/28/2022 No 07/28/2022 No 07/28/2022 Digital Access Answer Date Recorded No 08/25/2022 No 08/25/2022 Reliable internet access at home? Not on file 08/25/2022 Device with a working camera? Not on file Intimate Partner Violence Answer Date R ecorded Are you denied basic needs s uch as food, clothing, or medical care? No 04/30/2023 In the past 12 months have y ou been in a relationship with a person who hurts, threatens, or tries to control you? No 04/30/2023 Are you denied basic needs s uch as food, clothing, or medical care? No 04/30/2023 In the past 12 months have y ou been in a relationship with a person who hurts, threatens, or tries to control you? No 04/30/2023 Comments Unknown Sex and Gender Information Value Date Recorded Sex Assigned at Female 04/30/2023 9:18 AM EST Legal Sex Female 9:18 PM EDT Gender Identity Female 04/30/2023 9:18 AM EST Sexual Orientation Not on file Last Filed Vital Signs Vital Sign Reading Time Taken Comments Blood Pressure 113/74 02/09/2024 11:43 AM EST Pulse 57 02/09/2024 11:43 AM EST Temperature 36.9 C (98.4 F) 02/09/2024 11:43 AM EST Respiratory Rate 16 02/09/2024 11:43 AM EST Oxygen Saturation 100% 02/09/2024 11:43 AM EST Inhaled Oxygen Concentration - - Weight 77.1 kg (170 lb) 02/09/2024 11:43 AM EST Height 162.6 cm (5' 4 ) 02/09/2024 11:43 AM EST Body Mass Index 29.18 02/09/2024 11:43 AM EST Plan of Treatment Health Maintenance Due Date Last Done Comments Adult Td,Tdap Booster 1982 DEPRESSION SCREENING 1994 HEPATITIS C SCREENING 2000 HIV ONE-TIME SCREENING (18-6 5 YEARS) 2000 PAP SMEAR 12/26/2018 12/27/2015 MAMMOGRAM 2022 INFLUENZA VACCINE (#1) 2024 02/04/2014 COVID-19 VACCINE (2024-2 6 season) 2024 SCREENING FOR DIABETES 04/30/2026 04/30/2023 SMOKING STATUS SCREENING (On ce After 26 Yrs) Completed 02/09/2024 HEPATITIS A VACCINES Aged Out No long er eligible based on patient's age to complete this topic HIB VACCINES Aged Out No longer eligi ble based on patient's age to complete this topic MENINGOCOCCAL VACCINES (ACWY) Aged Out No longer eligible based on patient's age to complete this topic MENINGOCOCCAL VACCINES (B) Aged Out N o longer eligible based on patient's age to complete this topic PNEUMOCOCCAL VACCINES (0-49 years) Aged Out No longer eligible based on patient's age to complete this topic Medical Devices Not on file Insurance [employer] NET PARTIAL Member Subscriber Plan / Payer (Ef fective 2023-Present) Name:Debbie Muller Relation to Subscriber:Self Name:Debbie Muller Payer ID:Not on file Group ID:Not on file Type:Medicaid Address: [address] HMO [employer] [facility] NET PARTIAL [facility] HMO [facility] NET PARTIAL [facility] HMO HEALTH SAFETY NET PARTIAL Member Subscriber Plan / Payer (Ef fective 2023-Present) Name:Debbie Muller Relation to Subscriber:Self Name:Debbie Muller Payer ID:Not on file Group ID:Not on file Type:Medicaid Address: [address] HMO HEALTH SAFETY NET PARTIAL Member Subscriber Plan / Payer (Ef fective 2023-Present) Name:Debbie Muller Relation to Subscriber:Self Name:Debbie Muller Payer ID:Not on file Group ID:Not on file Type:Medicaid [address] NET PARTIAL Member Subscriber Plan / Payer (Ef fective 2023-Present) Name:Debbie Muller Relation to Subscriber:Self Name:Debbie Muller Payer ID:Not on file Group ID:Not on file Type:Medicaid Address: [facility], [address] HMO Care Teams Secretary To Board Of Commissioners Relationship Specialty Start Date End Date Lakesha Gtz NP [address] [place] [phone] [email or web address] PCP - General Nurse Practitioner 02/09/24 Additional Source Comments The information contained in this document represents components of the legal health record. It is not the complete legal health record.[facility]
[2025-01-20 07:57] VITALS: BP 110/67; PULSE 53; RESP 12; TEMP 36.2; O2SAT 99; BMI 29.2
== END 2025-01-20 08:33 | disposition home or self-care (01) ==
PROVIDERS: PCP Nurse Practitioner Family; Visit Provider Nurse Practitioner Family
DX: Z00.00 Encounter for general adult medical examination without abnormal findings (principal); F13.21 Sedative, hypnotic or anxiolytic dependence, in remission; F10.21 Alcohol dependence, in remission; F41.1 Generalized anxiety disorder; Z68.29 Body mass index [BMI] 29.0-29.9, adult; R87.810 Cervical high risk human papillomavirus (HPV) DNA test positive; F17.210 Nicotine dependence, cigarettes, uncomplicated; D75.89 Other specified diseases of blood and blood-forming organs; R79.89 Other specified abnormal findings of blood chemistry; M77.31 Calcaneal spur, right foot; K21.9 Gastro-esophageal reflux disease without esophagitis; N95.1 Menopausal and female climacteric states

== ENCOUNTER 2025-01-26 12:25 | Outpatient (AMB) | payer OTHER, SELFPAY ==
[2025-01-26 12:35] VITALS: BMI 29.2
--- NOTE | 2025-01-26 12:35 | MHC.AMNUTRGE ---
VS Expanded 01/26/25 12:35 01/26/25 12:39 Height 5 ft 4 in 5 ft 4 in Weight 170 lb 170 lb BMI 29.2 29.2 Intake Visit Reasons: wt loss Allergies morphine (MORPHINE) Allergy (Intermediate, Verified 01/20/25 08:03) NAUSEA Penicillins (PENICILLINS) Allergy (Intermediate, Verified 01/20/25 08:03) HIVES Nutrition Presentation Details: Pt presents for MNT for overweight Food frequency Fruits 1-2 a day Vegetables of 4 times a week Fish 0 to once a month Dairy greater than 3 times a day Eating out greater than twice a week Beverages: Combination of water juice low sugar beverages 24 oz or day Physical activity: Daily life activities plus at work Alcohol/smoking------ BS Monitoring Most Recent Diabetes Results: Microalb/Creat Ratio, (<30) 3.5 ug/mg cr 01/20/25 Cholesterol, (<200) 122 mg/dL 01/20/25 HDL Cholesterol, (>40) 43 mg/dL 01/20/25 Triglycerides, (<150) 109 mg/dL 01/20/25 Creatinine, (0.5-1.4) 0.76 mg/dL 01/20/25 BUN, (9-16) 10 mg/dL 01/20/25 Sodium, (135-145) 140 mmol/L 01/20/25 Potassium, (3.3-5.1) 4.2 mmol/L 01/20/25 Chloride, (96-108) 109 mmol/L H 01/20/25 Carbon Dioxide, (22-29) 26 mmol/L 01/20/25 Calcium, (8.4-10.2) 9.0 mg/dL 01/20/25 AST, (5-31) 18 U/L 01/20/25 ALT, (0-31) 25 U/L 01/20/25 Total Protein, (6.5-8.0) 6.9 g/dL 01/20/25 Albumin, (3.5-5.0) 4.4 g/dL 01/20/25 SFX-Hjqiqit-Vu.Jeor Equation Height: 5 ft 4 in Weight: 170 lb Resting Metabolic Rate: 1418.70 Calculated Activity Level: Sedentary Calories Needed to Maintain Weight: 1702.44 Diagnosis Nutrition problem #1: excessive energy intake As related to (etiology) #1: diagnosis As evidenced by (sign/symptom) #1: knowledge deficit of diet (lack of meal planning) PFSH Medical History Anxiety Surgical History Previous back surgery Family History Father Diabetes Maternal Aunt Breast cancer Social History Household Members: None Both parents involved: No Caregiver staying overnight: No Housing: Apartment Are you a primary date night caregiver to a significant other at home: No Do you presently have visiting nurse or other home services: No 75 years or older and lives alone: No Alcohol intake: current Alcohol intake frequency: a few times a month Patient Tobacco Use Status: Former Tobacco user Tobacco use type: Cigarette Cigarettes Per Day: 4 Years Smoked: 15 e-Cigarette/Vaping Use: Never Used Second Hand Smoke Exposure: No service: No Current occupational status: employed 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 Cognitive needs: No Hearing needs: No Vision needs: Yes (wear glasses) Female Reproductive History Menstrual Age of Menarche: 17 Assessment & Plan Assessment & Plan (1) BMI 29.0-29.9,adult: Code(s): Z68.29 - Body mass index [BMI] 29.0-29.9, adult Category: Medical Plan: current wt: 77 kg ( 02/24 ) est kcal needs as per MSJ: 1700 est protein needs as per 1 g/kg BW: 75-80 est fluid needs as per 30 ml/kg BW: 2300 Recommended fiber > 12 g /day and gradually increase up to 25-28 g /day or as tolerated Nutrition topics discussed : Reviewed (R), Pt verbalized understanding (V) , not applicable (N/A) R, V, : Healthy Plate Method Concept: R, V, : Carbohydrates: food sources of carbohydrates, relationship of carbohydrates to blood glucose, fatty liver GI health. Recommended total amount of carbohydrates per meals and snack. Differences between simple carbohydrates and complex carbohydrates R, V, : Lean protein foods including vegan , vegetarian sources of protein. Benefits of protein (including but not limited to healing, nutritional value , benefits in weight loss, glucose control R, V, N/A: Fats : Source of fats, benefits of fats. Difference between saturated and unsaturated fats. Saturated fats and its contribution to inflammation R, V, N/A: Fiber: food sources and role of fiber in the diet (including but not limited to its role as a prebiotic, benefits in constipation, role in IBS , role in glucose control and cholesterol level) R, V, : Hydration: role of hydration and prevention of dehydration or over hydration. Foods and water content. R, V, N/A: Vitamins and Minerals in foods and supplements R, V, N/A: Interpreting food labels, including serving size, macronutrients, vitamins, minerals, allergens, ingredient list , % daily value Patient Instructions: Keep hydrated consuming 8-9 cups of food (low sugar beverages, water) per day Work on meal planning, reducing total carb per meal to 45 g , see meal ideas as reference Coding Level of Care Code Nutr Indiv Intake (10602) Diagnoses BMI 29.0-29.9,adult Z68.29 Time Spent (min) 30
--- OUTSIDE RECORDS SUMMARY | 2025-01-26 15:46 | XMS_ITS | Clinical Summary ---
Author Organization [facility] Address [address] [place] [phone] Phone Care Team Providers Care Auto Machinist Name Role Phone Lakesha Gtz NP Primary [...] topic Medical Devices Not on file Insurance [email or web address] NET PARTIAL Member Subscriber Plan / Payer (Ef fective 2023-Present) Name:Debbie Muller Relation to Subscriber:Self Name:Debbie Muller Payer ID:Not on file Group ID:Not on file Type:Medicaid Address: [address] HMO [employer] [facility] NET PARTIAL [facility] HMO [facility] NET PARTIAL [facility] HMO HEALTH SAFETY NET PARTIAL Member Subscriber Plan / Payer (Ef fective 2023-Present) Name:Debbie Muller Relation to Subscriber:Self Name:Debbie Muller Payer ID:Not on file Group ID:Not on file Type:Medicaid Address: [address] HMO HEALTH SAFETY NET PARTIAL Member Subscriber Plan / Payer (Ef fective 2023-Present) Name:Debbie Muller Relation to Subscriber:Self Name:Debbie Muller Payer ID:Not on file Group ID:Not on file Type:Medicaid [address] NET PARTIAL Member Subscriber Plan / Payer (Ef fective 2023-Present) Name:Debbie Muller Relation to Subscriber:Self Name:Debbie Muller Payer ID:Not on file Group ID:Not on file Type:Medicaid Address: [facility], [address] HMO Care Teams Auto Machinist Relationship Specialty Start Date End Date Lakesha Gtz NP [address] [place] [phone] [email or web address] PCP - General Nurse Practitioner 02/09/24 Additional Source Comments The information contained in this document represents components of the legal health record. It is not the complete legal health record.[facility]
--- OUTSIDE RECORDS SUMMARY | 2025-01-26 15:46 | XMS_ITS | Clinical Summary ---
Author Organization [facility] Address [address] [place] [address] Care Team Providers Care Service Establishment Attendant Name Role Phone Unavailable Primary Care Provider [...] Cervical Cancer Screening: P ap Smear 10/17/2003 HPV Vaccines (1 - 3-dose SCD M series) 2009 Depression Screening 04/02/2024 COVID-19 Vaccine ( - 2023-2 5 season) 2024 Influenza Vaccine (#1) 2024 RSV Immunization Adult Patie nts (1 - 1-dose 75+ series) 2057 HIB Vaccines Aged Out No longer eligi [...] 5 Years) and At-Risk Patients (6 to 49 Years) Aged Out No longer eligible b ased on patient's age to complete this topic RSV Immunization Patients Un vickey 20 months Aged Out No longer eligible b ased on patient's age to complete this topic Varicella Vaccines Aged Out No longer eligible based on patient's age to complete this topic
[2025-02-03 12:55] VITALS: BMI 29.2
== END 2025-01-26 13:10 | disposition home or self-care (01) ==
LOC: HO.ENCR 12:26
PROVIDERS: PCP Nurse Practitioner Family; Visit Provider Dietitian, Registered
DX: Z68.29 Body mass index [BMI] 29.0-29.9, adult (principal)

== ENCOUNTER → 2025-01-26 12:25 | Outpatient (BNVA) | payer OTHER, SELFPAY | PROVIDERS: PCP Nurse Practitioner Family; Visit Provider Dietitian, Registered | DX: E66.3 Overweight (principal); Z68.29 Body mass index [BMI] 29.0-29.9, adult | CPT/HCPCS: 97802 ==